=== PATIENT | male | born 1950 | race Caucasian/White ===

== ENCOUNTER 2017-06-08 07:34 | Day surgery (SDC) | payer MEDICARE, OTHER ==
--- NOTE | 2017-06-08 06:28 | PCM.HP ---
H&P History of Present Illness - General Date of Service: 06/08/17 Admit Problem/Dx: Screening colonoscopy Source of Information: Patient - History of Present Illness Initial Comments - Free Text/Narative: The patient is a 67-year-old male here for screening colonoscopy. His PCP is Otilia Barrios NP The patient presents today for the above noted concern. Did complete prep and did have clear bowel movements this am. The patient denies any constipation/ diarrhea/ hematochezia/ melena/blood on tissue paper/hemorrhoids. Has 1 soft, brown, formed, BMs daily. Bowel movements are described as regular and easy to pass. No unintentional weight loss. No change in stool caliber. No abdominal pain. Denies history of ulcerative colitis or Crohn's disease. Denies any family history of inflammatory bowel disease or GI cancers. Last colonoscopy was 10 years ago in [place] at unsure location. Reportedly normal. No , nausea, vomiting. 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 He will occasionally choke on foods when over eats. Will have foods stick in his esophagus, won't go down, won't come up only when eating too, fast. No heimlich maneuver. The dysphagia occurs once monthly. Meats will stick. Will have reflux/heartburn when overeating only. He is interested in EGD. No right upper abdominal pain. No les/light colored stools. No greasy stools. NO pain/diarrhea with fatty meals. Has a loop recorder in left chest, February 2017. Has had palpitations and tachycardia. Hx of SVT, frequent PVCS, Ventricular tachycardia (reports he was told he had this at one point), ascending aortic aneurysm, aortic aneurysm. Last available echo 2013 measured aneurysm at 45mm. He reports he has yearly echocardiograms to monitor. He was going to have an ablation, was having abnormalities on both sides of his heart. Cardiac problems started with autoimmune disease. [facility]. Perdue follows dermatomyositis, has not had an infusion for one year. - Related Data Allergies/Adverse Reactions: Allergies Allergy/AdvReac Type Severity Reaction Status Date / Time rosuvastatin Allergy dermatomysi Verified 06/07/17 14:46 tis amiodarone AdvReac dermatomysi Verified 06/07/17 14:46 tis Home Medications: Home Meds Carvedilol 12.5 mg PO BID 11/06/14 [History] Famotidine [Pepcid] 20 mg PO BEDTIME 11/06/14 [History] Folic Acid 1 mg PO DAILY 11/06/14 [History] Hydroxychloroquine [Plaquenil] 200 mg PO BID 11/06/14 [History] amLODIPine Besylate [Amlodipine Besylate] 5 mg PO DAILY 11/06/14 [History] traZODone 50 mg PO BEDTIME 11/06/14 [History] Aspirin [Halfprin] 162 mg PO DAILY 05/20/15 [History] Mycophenolate Mofetil [Cellcept] 500 mg PO DAILY 05/20/15 [History] Vitamin A Palmitate [Vitamin A] 1 cap PO DAILY 05/20/15 [History] diphenhydrAMINE [Benadryl] 50 mg PO ASDIRECTED 05/20/15 [History] Sennosides/Docusate Sodium [Senna-S] 2 tab PO BID #60 tablet 05/21/15 [Rx] Losartan [Cozaar] 25 mg PO DAILY 04/14/16 [History] Flecainide Acetate [Flecainide Acetate] 100 mg PO DAILY 06/07/17 [History] Gabapentin [Neurontin] 400 mg PO DAILY 06/07/17 [History] Spironolactone [Aldactone] 25 mg PO DAILY 06/07/17 [History] Past Medical History HEENT History: Reports: Impaired Vision Other HEENT History: WEARS GLASSES, HX OF RETINITIS PIGMENTOSA Cardiovascular History: Reports: Aneurysm, Arrhythmia, Cardiomyopathy (possible) , Heart Murmur, Hypertension, Other (See Below) Other Cardiovascular History: LEAKING MITRAL VALVE, enlarged aorta, ventricular tachycardia, loop recorder Respiratory History: Reports: SOB Other Respiratory History: PT REPORTS SOB RELATED TO DERMATOMYOSITITS Gastrointestinal History: Reports: None Other Gastrointestinal History: CURRENT RIGHT INGUINAL HERNIA Genitourinary History: Reports: None Other Genitourinary History: erectile dysfunction 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 Musculoskeletal History: Reports: Other (See Below) Other Musculoskeletal History: 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 Other Neuro History: HX OF MUSCLE WEAKNESS RELATED TO DERMATOMYOSITIS Psychiatric History: Reports: None Endocrine/Metabolic History: Reports: None Hematologic History: Reports: None Other Immunologic History: DERMATOMYOSITIS Oncologic (Cancer) History: Reports: None Other Dermatologic History: dermatamytosis, shingles - Infectious Disease History Infectious Disease History: Reports: Shingles - Past Surgical History Head Surgeries/Procedures: Reports: None HEENT Surgical History: Reports: Cataract Surgery Other HEENT Surgeries/Procedures: HX OF BILATERAL CATARACT SURGERY AND BLEPHAROPLASTY PROCEDURE GI Surgical History: Reports: Appendectomy, Colonoscopy, Hernia, Inguinal, Hernia Repair/Other Other GI Surgeries/Procedures: LEFT INGUINAL HERNIA REPAIR OCTOBER 2014 Endocrine Surgical History: Reports: None Other Musculoskeletal Surgeries/Procedures:: HX OF RIGHT WRIST FUSION, ulna surgery Social & Family History - Family History Cardiac: Reports: Hypertension, [place] (Grandfather, Father (45), and brother (45)) GI: Reports: None Endocrine/Metabolic: Reports: Diabetes, type II Other Family History: retinosis pigmentosa-sister Positive family hx of DM, Heart disease, kidney disease, thyroid disorder, RA, Obesity - Tobacco Use Smoking Status *Q: Never Smoker Second Hand Smoke Exposure: No - Caffeine Use Caffeine Use: Reports: None - Alcohol Use Days Per Week of Alcohol Use: 0 Number of Drinks Per Day: 0 Total Drinks Per Week: 0 - Recreational Drug Use Recreational Drug Use: No Drug Use in Last 12 Months: No H&P Review of Systems - Review of Systems: Review Of Systems: See Below Free Text/Narrative: Denies any exertional chest pain or shortness of breath. No personal or familial history of clotting or bleeding disorders. No history of anesthetic complications. No history of familial anesthetic complications. Denies presence/history of chest pain. Hx of palpitations. Hx of lower extremity edema. NO: dyspnea, orthopnea, claudication, wheezing, obstructive sleep apnea, chronic cough, upper respiratory symptoms in the last two weeks. No history of blood thinner use. History of anemia 2013. NO hx of joint replacement and heart valves. No history of seizure or stroke. Hx of prior cardiology evaluation. NO: pulmonology evaluation. All other systems reviewed and were negative except as per history of present illness. General: Reports: No Symptoms. Denies: Fever, Chills, Night Sweats, Diaphoresis , Weight Loss HEENT: Reports: Glasses, Visual Changes (gradually worse) Pulmonary: Reports: No Symptoms. Denies: Shortness of Breath, Wheezing, Cough Cardiovascular: Reports: Palpitations (now a seldom occurrence, was once a day, no longer feels them ). Denies: Chest Pain Gastrointestinal: Reports: No Symptoms. Denies: Abdominal Pain, Black Stool, Bloody Stool, Constipation, Diarrhea, Decreased Appetite, Melena, Nausea, Vomiting Genitourinary: Reports: No Symptoms. Denies: Dysuria Musculoskeletal: Reports: Joint Swelling Skin: Reports: No Symptoms Psychiatric: Reports: No Symptoms Neurological: Reports: No Symptoms, Dizziness (in am ). Denies: Difficulty Walking Hematologic/Lymphatic: Reports: Easy Bruising. Denies: Easy Bleeding Immunologic: Reports: Other (dermatomyositis) Exam - Exam Exam: See Below - Vital Signs Weight: 90.718 kg - Exam General: Alert, Oriented, Cooperative HEENT: Conjunctiva Clear, Hearing Intact. No: Scleral Icterus Lungs: Clear to Auscultation, Normal Respiratory Effort Cardiovascular: Regular Rate, Regular Rhythm, Normal S1, Normal S2, Other ( heart tones slightly distant). No: Irregular Rhythm, Systolic Murmur, Diastolic Murmur Abdomen: Normal Bowel Sounds, Soft. No: Distention, Guarding, Tenderness Back Exam: Normal Inspection Extremities: Normal Inspection. No: Clubbing, Edema, Increased Warmth Skin: Warm, Dry, Intact Neuro Extensive - Mental Status: Alert, Oriented x3, Normal Mood/Affect, Normal Cognition, Memory Intact Neuro Extensive - Motor, Sensory, Reflexes: No: Receptive Aphasia, Expressive Aphasia, Facial Palsy (R), Facial Palsy w Forehead Psychiatric: Alert, Normal Affect, Normal Mood *Q Meaningful Use (ADM) - VTE *Q VTE Criteria *Q: - Stroke *Q Stroke Criteria *Q: - AMI *Q AMI Criteria *Q: - Problem List (1) Screening for colon cancer SNOMED Code(s): 470605796, 807048878 ICD Code: Z12.11 - ENCOUNTER FOR SCREENING FOR MALIGNANT NEOPLASM OF COLON Status: Acute Current Visit: Yes (2) Dysphagia SNOMED Code(s): 21651984, 954073637 ICD Code: R13.10 - DYSPHAGIA, UNSPECIFIED Status: Acute Current Visit: Yes Qualifiers: Dysphagia type: unspecified Qualified Code(s): R13.10 - Dysphagia, unspecified Problem List Initiated/Reviewed/Updated: Yes Orders Last 24hrs: Active Orders 24 hr Category Date Time Status Peripheral IV Care [RC] . DIRECTED Care 06/08/17 07:00 Active Verify Patient Consent Obtain [RC] ASDIRECTED Care 06/08/17 07:00 Active BMP [BASIC METABOLIC PANEL,BMP] [CHEM] Routine Lab 06/08/17 08:00 Ordered Lactated Ringers [Ringers, Lactated] 1,000 ml Med 06/08/17 07:00 Active IV ASDIRECTED Lidocaine 1%/Sod Bicarbonate [Buffered Lidocaine 1% in Med 06/08/17 07:00 Active NS 8.4%] 0.25 ml .XX ONETIME PRN Sodium Chloride 0.9% [Saline Flush] Med 06/08/17 07:00 Active 10 ml FLUSH ASDIRECTED PRN Medication Administration Instruction [OM.PC] Routine Oth 06/08/17 07:00 Ordered Peripheral IV Insertion Adult [OM.PC] Routine Oth 06/08/17 07:00 Ordered Medication Orders Lactated Ringer's (Ringers, Lactated) 1,000 mls @ 125 mls/hr IV ASDIRECTED MARCIA Stop: 06/08/17 23:00 Lidocaine/Sodium Bicarbonate (Buffered Lidocaine 1% In Ns 8.4%) 0.25 ml .XX ONETIME PRN PRN Reason: Prior to IV Start Stop: 06/08/17 18:00 Sodium Chloride (Saline Flush) 10 ml FLUSH ASDIRECTED PRN PRN Reason: Keep Vein Open Stop: 06/08/17 18:00 Assessment/Plan Comment:: 67 year old male with need for screening colonoscopy, dysphagia, need for diagnostic EGD Patient can perform 4 METS of physical activity without chest pain or shortness of breath. PLAN: We discussed performing a screening colonoscopy and diagnostic EGD. We discussed the risks and benefits of colonoscopy including pain, bleeding, need for additional procedures, damage to surrounding structures including colonic/ esophageal/small bowel perforation risk of less than 1%, and risks of anesthesia. Informed consent was obtained. We discussed completion of the colonoscopy prep. Verbal and written instructions regarding the prep were reviewed. This procedure will be done at [facility] due to cardiac history I personally reviewed the patient's previous medical records and laboratory studies. Patient verbalized understanding and agreed with care plan. This patient was evaluated by Dr. Julieta Licea, plan formulated by DEJUAN Lowry scribing for Dr. Julieta Licea General Surgery Department [facility]
[~2017-06-08 07:34] MED LIST: Lactated Ringers 1,000 ML IV SCH; Lidocaine 1%/Sod Bicarbonate in NS 8.4% 1 ML Syringe PRN; Sodium Chloride 0.9% 10 ML Syringe FLUSH PRN
[2017-06-08] MEDS ORDERED: Lidocaine 1% 4 ML ONE (07:39)
[2017-06-08] MEDS ORDERED: fentaNYL 100 MCG/2 ML SDV ONE (07:39)
[2017-06-08] MEDS ORDERED: Propofol 200 MG/20 ML SDV ONE (07:39)
--- NOTE | 2017-06-08 08:31 | PCM.PREANE ---
Preanesthetic Assessment - Anesthesia/Transfusion/Family Hx Anesthesia History: Prior Anesthesia Without Reaction Family History of Anesthesia Reaction: No Transfusion History: No Prior Transfusion(s) Intubation History: Unknown - Review of Systems General: No Symptoms Pulmonary: No Symptoms Cardiovascular: No Symptoms (history of htn, leaky mitral valve, enlarged aorta , history of SVT and loop recorder placed February 2017), Palpitations, Lightheadedness (with medication adjustments and when dehydration) Gastrointestinal: Difficulty swallowing Neurological: Tingling (left shoulder bilateral hands) Other: Reports: None (history of dermatomytosis with muscle weakness noted, with muscle weakness much improved.), Easy Bruising, Depression, Anxiety - Physical Assessment NPO Status Date: 06/07/17 NPO Status Time: 22:30 Pulse: 68 O2 Sat by Pulse Oximetry: 95 Respiratory Rate: 20 Blood Pressure: 126/74 Temperature: 36.4 C Height: 1.78 m Weight: 90.718 kg ASA Class: 3 Mental Status: Alert & Oriented x3 Airway Class: Mallampati = 2 Dentition: Reports: Normal Dentition, Caries Thyro-Mental Finger Breadths: 3 Mouth Opening Finger Breadths: 3 ROM/Head Extension: Full Lungs: Clear to auscultation, Normal respiratory effort Cardiovascular: Regular Rate, Regular Rhythm, Irregular Rhythm - Lab Values: Labs reviewed and noted and within acceptable ranges to proceed with scheduled procedure. - Imaging/EKG Impressions: EKG: SR rate= 60, no acute stemi CXR: mild cardiomegaly - Allergies Allergies/Adverse Reactions: Allergies Allergy/AdvReac Type Severity Reaction Status Date / Time rosuvastatin Allergy dermatomysi Verified 06/08/17 08:46 tis amiodarone AdvReac dermatomysi Verified 06/08/17 08:46 tis - Anesthesia Plan Pre-Op Medication Ordered: Beta Elliot Beta Elliot: Carvedilol Med Last Dose Date: 06/08/17 Med Last Dose Time: 06:00 - Acknowledgements Anesthesia Type Planned: MAC Pt an Appropriate Candidate for the Planned Anesthesia: Yes Alternatives and Risks of Anesthesia Discussed w Pt/Guardian: Yes Pt/Guardian Understands and Agrees with Anesthesia Plan: Yes PreAnesthesia Questionnaire HEENT History: Reports: Impaired Vision Other HEENT History: WEARS GLASSES, HX OF RETINITIS PIGMENTOSA Cardiovascular History: Reports: Hypertension, Other (See Below) Other Cardiovascular History: LEAKING MITRAL VALVE, enlarged aorta, ventricular tachycardia, loop recorder Respiratory History: Reports: SOB Other Respiratory History: PT REPORTS SOB RELATED TO DERMATOMYOSITITS Other Gastrointestinal History: CURRENT RIGHT INGUINAL HERNIA Other Genitourinary History: erectile dysfunction 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 Musculoskeletal History: Reports: Other (See Below) Other Musculoskeletal History: 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 Other Neuro History: HX OF MUSCLE WEAKNESS RELATED TO DERMATOMYOSITIS Psychiatric History: Reports: None Endocrine/Metabolic History: Reports: None Hematologic History: Reports: None Other Immunologic History: DERMATOMYOSITIS Oncologic (Cancer) History: Reports: None Other Dermatologic History: dermatamytosis, shingles - Infectious Disease History Infectious Disease History: Reports: Shingles - Past Surgical History Head Surgeries/Procedures: Reports: None HEENT Surgical History: Reports: Cataract Surgery Other HEENT Surgeries/Procedures: HX OF BILATERAL CATARACT SURGERY AND BLEPHAROPLASTY PROCEDURE GI Surgical History: Reports: Appendectomy, Colonoscopy, Hernia, Inguinal, Hernia Repair/Other Other GI Surgeries/Procedures: LEFT INGUINAL HERNIA REPAIR OCTOBER 2014 Endocrine Surgical History: Reports: None Other Musculoskeletal Surgeries/Procedures:: HX OF RIGHT WRIST FUSION, ulna surgery - SUBSTANCE USE Smoking Status *Q: Never Smoker Second Hand Smoke Exposure: No Days Per Week of Alcohol Use: 0 Number of Drinks Per Day: 0 Total Drinks Per Week: 0 Recreational Drug Use History: No - HOME MEDS Home Medications: Home Meds Carvedilol 12.5 mg PO BID 11/06/14 [History] Famotidine [Pepcid] 20 mg PO BEDTIME 11/06/14 [History] Folic Acid 1 mg PO DAILY 11/06/14 [History] Hydroxychloroquine [Plaquenil] 200 mg PO BID 11/06/14 [History] amLODIPine Besylate [Amlodipine Besylate] 5 mg PO DAILY 11/06/14 [History] traZODone 50 mg PO BEDTIME 11/06/14 [History] Aspirin [Halfprin] 162 mg PO DAILY 05/20/15 [History] Mycophenolate Mofetil [Cellcept] 500 mg PO DAILY 05/20/15 [History] Vitamin A Palmitate [Vitamin A] 1 cap PO DAILY 05/20/15 [History] diphenhydrAMINE [Benadryl] 50 mg PO ASDIRECTED 05/20/15 [History] Sennosides/Docusate Sodium [Senna-S] 2 tab PO BID #60 tablet 05/21/15 [Rx] Losartan [Cozaar] 25 mg PO DAILY 04/14/16 [History] Flecainide Acetate [Flecainide Acetate] 100 mg PO DAILY 06/07/17 [History] Gabapentin [Neurontin] 400 mg PO DAILY 06/07/17 [History] Spironolactone [Aldactone] 25 mg PO DAILY 06/07/17 [History] - CURRENT (IN HOUSE) MEDS Current Meds: Current Medications Lactated Ringer's (Ringers, Lactated) 1,000 mls @ 125 mls/hr IV ASDIRECTED MARCIA Stop: 06/08/17 23:00 Lidocaine/Sodium Bicarbonate (Buffered Lidocaine 1% In Ns 8.4%) 0.25 ml .XX ONETIME PRN PRN Reason: Prior to IV Start Stop: 06/08/17 18:00 Sodium Chloride (Saline Flush) 10 ml FLUSH ASDIRECTED PRN PRN Reason: Keep Vein Open Stop: 06/08/17 18:00 Discontinued Medications Fentanyl (Sublimaze) Confirm Administered Dose 100 mcg .ROUTE .STK-MED ONE Stop: 06/08/17 07:40 Lidocaine HCl (Xylocaine-Mpf 1%) Confirm Administered Dose 4 mls @ as directed .ROUTE .STK-MED ONE Stop: 06/08/17 07:40 Propofol (Diprivan 20 Ml) Confirm Administered Dose 200 mg .ROUTE .STK-MED ONE Stop: 06/08/17 07:40
--- NOTE | 2017-06-08 09:50 | PCM48HPAN ---
Post Anesthesia Note - EVALUATION WITHIN 48HRS OF ANESTHETIC Vital Signs in Normal Range: Yes Patient Participated in Evaluation: Yes Respiratory Function Stable: Yes Airway Patent: Yes Cardiovascular Function Stable: Yes Hydration Status Stable: Yes Pain Control Satisfactory: Yes Nausea and Vomiting Control Satisfactory: Yes Mental Status Recovered: Yes
--- NOTE | 2017-06-08 09:51 | PCM.OPNOTE ---
- General Post-Op/Procedure Note Date of Surgery/Procedure: 06/08/17 Operative Procedure(s): Dx EGD CFB. Screening colonoscopy Pre Op Diagnosis: Dysphagia, Need for screening colonoscopy Post-Op Diagnosis: Gastritis, Gastric ulcers, Duodenitis, Small hiatal hernia, Diverticulosis, Unusual (benign) appearance of cecum Anesthesia Technique: MAC Primary Surgeon: Julieta Licea Anesthesia Provider: Blanquita Poole Pathology: 1. Small bowel biopsy 2. Antral biopsy 3. Distal esophageal biopsy Fluid Replacement, Intraop: 400 (mL crystalloid ) EBL in mLs: 1 Complications: None Condition: Good Free Text/Narrative:: INDICATION FOR PROCEDURE: The patient is a 67-year-old man who was self- referred to me. He is a patient of CRISTOBAL Kramer. He has dysphagia and is in need of a screening colonoscopy. He has a history of dermatomyositis followed by Dr. Perdue. Performing a colonoscopy and EGD and the associated risks of the procedures had been discussed with the patient. The patient found these risks acceptable and agreed to proceed. DESCRIPTION OF PROCEDURE: The patient was taken to the operating room and placed in the left lateral decubitus position. After induction of adequate sedation, a bite block was placed. A standard Olympus gastroscope was inserted into the oropharynx and guided down the esophagus without difficulty. The gastroesophageal junction was appreciated at 40 cm from the teeth. There was no evidence of stricture or esophageal ulcerations. The scope was advanced into the stomach, and there was gastritis with multiple small cratered ulcers around the antrum. The scope was passed into the proximal jejunum and the duodenum which showed mild duodenitis of D1 and D2. There were no ulcerations. The proximal jejunum was grossly normal in appearance. Multiple cold forceps biopsies were obtained of the proximal jejunum and duodenum. The scope was withdrawn into the antrum, and additional cold forceps biopsies were obtained. The remainder of the gastric body was examined, and there were no additional abnormalities. The scope was retroflexed, and there was a diminutive hiatal hernia. The scope was straightened and withdrawn to the GE junction. Additional cold forceps biopsies were obtained of the distal esophagus. The scope was withdrawn through the remainder of the esophagus and no further abnormalities were noted. The posterior oropharynx was grossly normal in appearance. The scope was fully withdrawn and attention was then turned to the colonoscopy. A digital rectal exam was performed which was unremarkable. There were no prostatic nodules. A pediatric Olympus colonoscope was inserted into the rectum and guided under direct visualization to the appendiceal orifice and ileocecal valve. The scope was then slowly withdrawn through the colon. The quality of the prep was excellent. There was no evidence of angiodysplasias or mass lesions. The scope was withdrawn into the rectum and retroflexed. There was no significant prominence of the patient's internal hemorrhoids. The scope was straightened, the colon was desufflated, and the scope was withdrawn. The patient was awakened from sedation and transferred to the recovery room in stable condition having tolerated the procedure well. POSTOPERATIVE PLAN: I discussed with the patient's my intraoperative findings and recommendations. The patient will follow up in approximately 14 days to discuss pathology and how their symptoms are progressing. The patient is to start Protonix 40mg daily and may stop the Pepcid nightly. He also needs to stop the aspirin for ideally 6 weeks. I have asked him to discuss with Dr. Perdue adjustment of his Cellcept as Protonix can alter absorption. He does need to be on the Protonix as Pepcid was not effective for him. If his symptoms do not improve on Protonix consideration of esophageal motility testing. I have asked the patient to follow a GERD\gastritis diet. Repeat colonoscopy is recommended in 10 years. The patient is to call with any worsening of symptoms or questions prior to the appointment.
[2017-06-08 11:17] VITALS: BP 125/62
== END 2017-06-08 11:38 | disposition home or self-care (01) ==
LOC: JD.SDS 07:34
PROVIDERS: ATTEND Surgery
PROC: 0DBA8ZX Excision of Jejunum, Via Natural or Artificial Opening Endoscopic, Diagnostic (ICD-10-PCS; principal; 2017-06-08)
PROC: 0DB88ZX Excision of Small Intestine, Via Natural or Artificial Opening Endoscopic, Diagnostic (ICD-10-PCS; 2017-06-08)
PROC: 0DJD8ZZ Inspection of Lower Intestinal Tract, Via Natural or Artificial Opening Endoscopic (ICD-10-PCS; 2017-06-08)
DX: Z12.11 Encounter for screening for malignant neoplasm of colon (principal); R13.10 Dysphagia, unspecified; K25.9 Gastric ulcer, unspecified as acute or chronic, without hemorrhage or perforation; I71.9 Aortic aneurysm of unspecified site, without rupture; I34.8 Other nonrheumatic mitral valve disorders; K40.90 Unilateral inguinal hernia, without obstruction or gangrene, not specified as recurrent
CPT/HCPCS: 36415; 43239; 45378; 80048; 88305; J3010; J7120; J2704

== ENCOUNTER 2018-03-01 06:47 | Day surgery (SDC) | payer MEDICARE, OTHER ==
[2018-03-01] MEDS ORDERED: Propofol 200 MG/20 ML SDV ONE (07:01)
[2018-03-01] MEDS ORDERED: fentaNYL 100 MCG/2 ML SDV ONE (07:02)
[2018-03-01] MEDS ORDERED: Lidocaine 1% 4 ML ONE (07:04)
--- NOTE | 2018-03-01 07:21 | PCM.PREANE ---
Preanesthetic Assessment - Procedure Proposed Procedure: Diagnostic EGD - Anesthesia/Transfusion/Family Hx Anesthesia History: Prior Anesthesia Without Reaction Family History of Anesthesia Reaction: No Transfusion History: No Prior Transfusion(s) Intubation History: Unknown - Review of Systems General: No Symptoms Pulmonary: No Symptoms Cardiovascular: Other (Dilated cardiomyopathy, aortic regurg, PSVT, left artrial dilation, ascending aortic aneurysm, htn) Gastrointestinal: Other (GERD) Neurological: No Symptoms Other: Reports: None - Physical Assessment NPO Status Date: 02/28/18 NPO Status Time: 21:00 Pulse: 90 O2 Sat by Pulse Oximetry: 96 Respiratory Rate: 16 Blood Pressure: 140/78 Temperature: 36.6 C Height: 1.75 m Weight: 95 kg ASA Class: 2 Mental Status: Alert & Oriented x3 Airway Class: Mallampati = 1 Dentition: Reports: Normal Dentition Thyro-Mental Finger Breadths: 3 ROM/Head Extension: Full Lungs: Clear to Auscultation, Normal Respiratory Effort Cardiovascular: Regular Rate, Regular Rhythm - Allergies Allergies/Adverse Reactions: Allergies Allergy/AdvReac Type Severity Reaction Status Date / Time propafenone Allergy Cannot Verified 03/01/18 07:32 Remember amiodarone AdvReac dermatomysi Verified 02/28/18 15:33 tis rosuvastatin AdvReac dermatomysi Verified 03/01/18 07:30 tis - Blood Blood Available: No Product(s) Available: None - Anesthesia Plan Pre-Op Medication Ordered: None - Acknowledgements Anesthesia Type Planned: MAC Pt an Appropriate Candidate for the Planned Anesthesia: Yes Alternatives and Risks of Anesthesia Discussed w Pt/Guardian: Yes Pt/Guardian Understands and Agrees with Anesthesia Plan: Yes PreAnesthesia Questionnaire HEENT History: Reports: Impaired Vision Other HEENT History: WEARS GLASSES, HX OF RETINITIS PIGMENTOSA Cardiovascular History: Reports: Hypertension, Other (See Below) Other Cardiovascular History: LEAKING MITRAL VALVE, enlarged aorta, ventricular tachycardia, loop recorder Respiratory History: Reports: SOB Other Respiratory History: PT REPORTS SOB RELATED TO DERMATOMYOSITITS Gastrointestinal History: Reports: None Other Gastrointestinal History: CURRENT RIGHT INGUINAL HERNIA Genitourinary History: Reports: None Other Genitourinary History: erectile dysfunction [employer]IST History: Reports: None Musculoskeletal History: Reports: Other (See Below) Other Musculoskeletal History: 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 Other Neuro History: HX OF MUSCLE WEAKNESS RELATED TO DERMATOMYOSITIS Psychiatric History: Reports: None Endocrine/Metabolic History: Reports: None Hematologic History: Reports: None Other Immunologic History: DERMATOMYOSITIS Oncologic (Cancer) History: Reports: None Other Dermatologic History: dermatamytosis, shingles - Infectious Disease History Infectious Disease History: Reports: Shingles - Past Surgical History Head Surgeries/Procedures: Reports: None HEENT Surgical History: Reports: Cataract Surgery Other HEENT Surgeries/Procedures: HX OF BILATERAL CATARACT SURGERY AND BLEPHAROPLASTY PROCEDURE GI Surgical History: Reports: Appendectomy, Colonoscopy, Hernia, Inguinal, Hernia Repair/Other Other GI Surgeries/Procedures: LEFT INGUINAL HERNIA REPAIR OCTOBER 2014 Endocrine Surgical History: Reports: None Other Musculoskeletal Surgeries/Procedures:: HX OF RIGHT WRIST FUSION, ulna surgery - SUBSTANCE USE Smoking Status *Q: Never Smoker Second Hand Smoke Exposure: No Days Per Week of Alcohol Use: 0 Number of Drinks Per Day: 0 Total Drinks Per Week: 0 Recreational Drug Use History: No - HOME MEDS Home Medications: Home Meds Carvedilol 12.5 mg PO BID 11/06/14 [History] Folic Acid 1 mg PO DAILY 11/06/14 [History] Hydroxychloroquine [Plaquenil] 200 mg PO BID 11/06/14 [History] traZODone 50 mg PO BEDTIME 11/06/14 [History] Mycophenolate Mofetil [Cellcept] 1,000 mg PO BID 05/20/15 [History] diphenhydrAMINE [Benadryl] 50 mg PO BID 05/20/15 [History] Losartan [Cozaar] 25 mg PO DAILY 04/14/16 [History] Flecainide Acetate 100 mg PO BID 06/07/17 [History] Spironolactone [Aldactone] 25 mg PO DAILY 06/07/17 [History] Aspirin [Adult Low Dose Aspirin EC] 81 mg PO DAILY 02/28/18 [History] Cholecalciferol (Vitamin D3) [Vitamin D3] 2,000 unit PO DAILY 02/28/18 [History] Famotidine 20 mg PO DAILY 02/28/18 [History] Gabapentin [Neurontin] 300 mg PO BEDTIME 02/28/18 [History] Mometasone Furoate [Elocon 0.1% Crm] 1 dose TOP BID 02/28/18 [History] Naproxen Sodium 1 tab PO TID PRN 02/28/18 [History] Vitamin A 25,000 unit PO DAILY 03/01/18 [History] - CURRENT (IN HOUSE) MEDS Current Meds: Current Medications Discontinued Medications Fentanyl (Sublimaze) Confirm Administered Dose 100 mcg .ROUTE .STK-MED ONE Stop: 03/01/18 07:03 Lidocaine HCl (Xylocaine-Mpf 1%) Confirm Administered Dose 4 mls @ as directed .ROUTE .STK-MED ONE Stop: 03/01/18 07:05 Propofol (Diprivan 20 Ml) Confirm Administered Dose 200 mg .ROUTE .STK-MED ONE Stop: 03/01/18 07:02
[2018-03-01] MEDS ORDERED: Sodium Chloride 0.9% 10 ML Syringe FLUSH PRN (07:24)
[2018-03-01] MEDS ORDERED: Lidocaine 1%/Sod Bicarbonate in NS 8.4% 1 ML Syringe IDERM PRN (07:24)
[2018-03-01] MEDS ORDERED: Lactated Ringers 1,000 ML IV SCH (07:30)
--- NOTE | 2018-03-01 07:58 | PCM.OPNOTE ---
- General Post-Op/Procedure Note Date of Surgery/Procedure: 03/01/18 Operative Procedure(s): Esophagogastroduodenoscopy with antral biopsy Findings: Mild spotty antral inflammation Pre Op Diagnosis: History of antritis and GERD Post-Op Diagnosis: Mild antritis Anesthesia Technique: MAC, Moderate Sedation Primary Surgeon: Kwesi Neumann Pathology: Antral biopsy 1 EBL in mLs: 0 Complications: None Condition: Good Free Text/Narrative:: After adequate IV sedation and analgesia was obtained with monitoring the patient was placed on his left side. Through a bite-block lubricated upper endoscope was inserted into the esophagus and then advanced under direct vision to the stomach where additional air was given. There were spotty areas of erythema within the distal antrum. There were no rosas ulcers or erosions. The scope was then introduced into the duodenum to its second part distally. The second and first parts were endoscopically normal with no mass lesions or inflammatory changes seen. The scope was then withdrawn to the antrum once again where a biopsy was taken for histologic evaluation. In the retroflexed view the cardiac and fundic regions were unremarkable and there was no hiatal hernia. The rugal folds were normal. The gastric motility was grossly normal as well. The scope was then withdrawn to the GE junction which was unremarkable. The body of this esophagus was grossly normal. Director Of Enrollment photographs were taken for the patient and for the medical record. Air was removed as I finished the procedure which he tolerated well.
--- NOTE | 2018-03-01 08:01 | PCM48HPAN ---
Post Anesthesia Note - EVALUATION WITHIN 48HRS OF ANESTHETIC Vital Signs in Normal Range: Yes Patient Participated in Evaluation: Yes Respiratory Function Stable: Yes Airway Patent: Yes Cardiovascular Function Stable: Yes Hydration Status Stable: Yes Pain Control Satisfactory: Yes Nausea and Vomiting Control Satisfactory: Yes Mental Status Recovered: Yes Pulse Rate: 60 SaO2: 91 Resp Rate: 14 Temperature: 36.7 C Blood Pressure: 103/57
[2018-03-01 08:33] VITALS: BP 110/73
== END 2018-03-01 08:22 | disposition home or self-care (01) ==
LOC: JD.SDS 06:47
PROVIDERS: ATTEND Surgery
DX: K31.89 Other diseases of stomach and duodenum (principal); K21.9 Gastro-esophageal reflux disease without esophagitis; I10 Essential (primary) hypertension; Z79.899 Other long term (current) drug therapy; Z88.8 Allergy status to other drugs, medicaments and biological substances
CPT/HCPCS: 43239; J3010; J7120; 00731; 88305; 88342; J2001; J2704

== ENCOUNTER 2020-01-05 17:33 | Observation (INO) | payer MEDICARE, OTHER ==
[2020-01-05] MEDS ORDERED: Sodium Chloride 0.9% 10 ML Syringe FLUSH PRN (17:49)
[2020-01-05] MEDS ORDERED: Ondansetron 4 MG/2 ML SDV IVPUSH ONE (17:49)
[2020-01-05] MEDS ORDERED: Lactated Ringers 1,000 ML IV SCH (18:00)
--- NOTE | 2020-01-05 18:40 | CR ---
Chest: Portable view of the chest was obtained. Comparison: Prior chest x-ray of 10/18/16. Heart is enlarged. Tortuous thoracic aorta is seen. Atelectasis is noted within the left base. Lungs otherwise are clear. Bony structures are grossly intact. Prior resection of distal right clavicle is noted. Impression: 1. Atelectasis within left lung base. 2. Other findings as noted above. Nothing acute is otherwise seen. Diagnostic code #2 Study was dictated in [place] Standard Time
--- NOTE | 2020-01-05 19:09 | EDM.PDOC ---
<Herbert Francois Mary Lou - Last Filed: 01/05/20 19:41> ED HPI GENERAL MEDICAL PROBLEM - General Chief Complaint: Cardiovascular Problem Stated Complaint: [facility] Time Seen by Provider: 01/05/20 17:37 Source of Information: Reports: Patient, RN Notes Reviewed - History of Present Illness INITIAL COMMENTS - FREE TEXT/NARRATIVE: 69-year-old male has been brought in by [facility] ambulance with nausea, near syncope, difficulty breathing. Patient states that he was aware of decreased appetite at lunchtime today about 6 hours ago and just has not felt "totally normal on day today". Then a short time ago onset of severe nausea, severe dizziness "couldn't breathe". He did call 911. [facility] ambulance did respond , did call for Early ambulance intercept, was given oxygen, transported here without further incident. EMS arrival he was noted to be pale, diaphoretic which gradually did resolve while in route to the ED. He does have history of hypertension, history of coronary artery disease and also does have history of rhythm abnormalities". He has not been coughing today but also family notes that he did not get a flu shot this year. 19:35. Just found out a short time ago that he actually awakened with diarrhea this past morning about 12 episodes today. Told the triage nurse that there may have been some dark stools mixed in with this but nothing severely black or tarry. No rosas blood. He is on eliquis blood thinner medication and 3 hypertensive meds in addition to his other medications. He is not diabetic. 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 below) Other Treatments NICKING MACHINE OPERATOR: iv start per ambulance - Related Data Allergies Allergy/AdvReac Type Severity Reaction Status Date / Time propafenone Allergy Cannot Verified 03/01/18 07:32 Remember amiodarone AdvReac dermatomysi Verified 02/28/18 15:33 tis rosuvastatin AdvReac dermatomysi Verified 03/01/18 07:30 tis Home Meds: Home Meds Hydroxychloroquine [Plaquenil] 200 mg PO BID 11/06/14 [History] carvediloL [Carvedilol] 12.5 mg PO BID 11/06/14 [History] mycophenolate mofetiL [Cellcept] 1,000 mg PO BID 05/20/15 [History] Losartan [Cozaar] 25 mg PO DAILY 04/14/16 [History] Flecainide Acetate 100 mg PO BID 06/07/17 [History] Spironolactone [Aldactone] 25 mg PO DAILY 06/07/17 [History] Cholecalciferol (Vitamin D3) [Vitamin D3] 2,000 unit PO DAILY 02/28/18 [History] Famotidine 20 mg PO DAILY PRN 02/28/18 [History] Naproxen Sodium 220 mg PO TID PRN 02/28/18 [History] Vitamin A 25,000 unit PO DAILY 03/01/18 [History] Apixaban [Eliquis] 5 mg PO BID 01/05/20 [History] Past Medical History HEENT History: Reports: Impaired Vision Other HEENT History: WEARS GLASSES, HX OF RETINITIS PIGMENTOSA Cardiovascular History: Reports: Hypertension, Other (See Below) Other Cardiovascular History: LEAKING MITRAL VALVE, enlarged aorta, ventricular tachycardia, loop recorder Respiratory History: Reports: SOB Other Respiratory History: PT REPORTS SOB RELATED TO DERMATOMYOSITITS Gastrointestinal History: Reports: None Other Gastrointestinal History: CURRENT RIGHT INGUINAL HERNIA Genitourinary History: Reports: None Other Genitourinary History: erectile dysfunction 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: Reports: None Musculoskeletal History: Reports: Other (See Below) Other Musculoskeletal History: 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 Other Neuro History: HX OF MUSCLE WEAKNESS RELATED TO DERMATOMYOSITIS Psychiatric History: Reports: None Endocrine/Metabolic History: Reports: None Hematologic History: Reports: None Other Immunologic History: DERMATOMYOSITIS Oncologic (Cancer) History: Reports: None Other Dermatologic History: dermatamytosis, shingles - Infectious Disease History Infectious Disease History: Reports: Shingles - Past Surgical History Head Surgeries/Procedures: Reports: None HEENT Surgical History: Reports: Cataract Surgery Other HEENT Surgeries/Procedures: HX OF BILATERAL CATARACT SURGERY AND BLEPHAROPLASTY PROCEDURE GI Surgical History: Reports: Appendectomy, Colonoscopy, Hernia, Inguinal, Hernia Repair/Other Other GI Surgeries/Procedures: LEFT INGUINAL HERNIA REPAIR OCTOBER 2014 Endocrine Surgical History: Reports: None Other Musculoskeletal Surgeries/Procedures:: HX OF RIGHT WRIST FUSION, ulna surgery Social & Family History - Family History Cardiac: Reports: Hypertension, [place] GI: Reports: None Endocrine/Metabolic: Reports: Diabetes, type II - Tobacco Use Smoking Status *Q: Never Smoker - Caffeine Use Caffeine Use: Reports: Coffee ED ROS GENERAL - Review of Systems Review Of Systems: See Below Constitutional: Reports: Chills, Diaphoresis, Decreased Appetite. Denies: Fever HEENT: Denies: Throat Pain Respiratory: Reports: Shortness of Breath. Denies: Pleuritic Chest Pain (Now better) Cardiovascular: Denies: Chest Pain GI/Abdominal: Reports: Abdominal Pain (Gone), Diarrhea, Nausea, Vomiting Musculoskeletal: Reports: Other (Generalized achiness today) Skin: Denies: Rash Neurological: Reports: Dizziness, Weakness (Was severe, now better generalized) ED EXAM, GENERAL - Physical Exam Exam: See Below General Appearance: Alert, No Apparent Distress Eye Exam: Bilateral Eye: PERRL Throat/Mouth: Other Head: Atraumatic (Oral mucosa is dry) Neck: Supple Respiratory/Chest: No Respiratory Distress, Lungs Clear, Normal Breath Sounds Cardiovascular: Tachycardia GI/Abdominal: Soft, Non-Tender. No: Guarding Rectal (Males) Exam: Other (There is small amount of brown stool on rectal exam , trace heme positive) Back Exam: No: CVA Tenderness (L), CVA Tenderness (R) Extremities: Normal Inspection. No: Pedal Edema, Leg Pain, Increased Warmth, Redness Neurological: Alert, Oriented, No Motor/Sensory Deficits Skin Exam: Pallor (On arrival to ED, no longer diaphoretic) EKG INTERPRETATION EKG Date: 01/05/20 Rhythm: NSR [place]: Normal P-Wave: Present QRS: Other (There are Q waves in leads III, AVF and V2.) Course - Vital Signs Last Recorded V/S: Last Vital Signs Temp Pulse 109 H 01/05/20 17:35 Resp 31 H 01/05/20 17:35 BP 145/77 H 01/05/20 17:35 Pulse Ox 91 L 01/05/20 17:35 - Orders/Labs/Meds Orders: Active Orders 24 hr Category Date Time Status EKG 12 Lead [EKG Documentation Completion] [RC] STAT Care 01/05/20 17:49 Active Oxygen Therapy [RC] ASDIRECTED Care 01/05/20 17:49 Active Peripheral IV Care [RC] . DIRECTED Care 01/05/20 17:49 Active CULTURE STOOL + SHIGATOX [RM] Stat Lab 01/05/20 20:17 Ordered CULTURE URINE [RM] Stat Lab 01/05/20 18:20 Received ROTAVIRUS DIRECT ANTIGEN STOOL [OP] Stat Lab 01/05/20 20:17 Ordered WBC, STOOL [OP] Stat Lab 01/05/20 20:17 Ordered Lactated Ringers [Ringers, Lactated] 1,000 ml Med 01/05/20 18:00 Active IV ASDIRECTED Sodium Chloride 0.9% [Saline Flush] Med 01/05/20 17:49 Active 10 ml FLUSH ASDIRECTED PRN Peripheral IV Insertion Pediatric [OM.PC] Routine Oth 01/05/20 17:49 Ordered Medication Orders Lactated Ringer's (Ringers, Lactated) 1,000 mls @ 150 mls/hr IV ASDIRECTED MARCIA Last Infusion: 01/05/20 18:25 Dose: 999 mls/hr Admin: 01/05/20 17:56 Dose: 150 mls/hr Sodium Chloride (Saline Flush) 10 ml FLUSH ASDIRECTED PRN PRN Reason: Keep Vein Open Last Admin: 01/05/20 17:57 Dose: 10 ml Labs: Laboratory Tests 01/05/20 01/05/20 01/05/20 Range/Units 17:40 17:40 17:40 WBC 3.70 L (4.23-9.07) K/mm3 RBC 4.99 (4.63-6.08) M/mm3 Hgb 14.2 (13.7-17.5) gm/dl Hct 42.4 (40.1-51.0) % MCV 85.0 (79.0-92.2) fl MCH 28.5 (25.7-32.2) pg MCHC 33.5 (32.2-35.5) g/dl RDW Std Deviation 41.9 (35.1-43.9) fL Plt Count 129 L (163-337) K/mm3 MPV 11.4 (9.4-12.3) fl Neut % (Auto) 93.2 H (34.0-67.9) % Lymph % (Auto) 5.7 L (21.8-53.1) % [place] % (Auto) 0.8 L (5.3-12.2) % Eos % (Auto) 0.3 L (0.8-7.0) Baso % (Auto) 0.0 L (0.1-1.2) % Neut # (Auto) 3.45 (1.78-5.38) K/mm3 Lymph # (Auto) 0.21 L (1.32-3.57) K/mm3 [place] # (Auto) 0.03 L (0.30-0.82) K/mm3 Eos # (Auto) 0.01 L (0.04-0.54) K/mm3 Baso # (Auto) 0.00 L (0.01-0.08) K/mm3 Manual Slide Review Abnormal smear Sodium 138 (136-145) mEq/L Potassium 3.5 (3.5-5.1) mEq/L Chloride 102 (98-107) mEq/L Carbon Dioxide 21 (21-32) mEq/L Anion Gap 18.5 H (5-15) BUN 17 (7-18) mg/dL Creatinine 1.3 (0.7-1.3) mg/dL Est Cr Clr Drug Dosing 55.37 mL/min Estimated GFR (MDRD) 55 (>60) mL/min BUN/Creatinine Ratio 13.1 L (14-18) Glucose 127 H (80-115) mg/dL Calcium 9.3 (8.5-10.1) mg/dL Total Bilirubin 1.4 H (0.2-1.0) mg/dL AST 16 (15-37) U/L ALT 28 (16-63) U/L Alkaline Phosphatase 54 (46-116) U/L Troponin I < 0.017 (0.00-0.056) ng/mL NT-Pro-B Natriuret Pep 333 H (0-125) pg/mL Total Protein 7.1 (6.4-8.2) g/dl Albumin 4.0 (3.4-5.0) g/dl Globulin 3.1 gm/dL Albumin/Globulin Ratio 1.3 (1-2) Urine Color (Yellow) Urine Appearance (Clear) Urine pH (5.0-8.0) Ur Specific [place] (1.005-1.030) Urine Protein (Negative) Urine Glucose (UA) (Negative) Urine Ketones (Negative) Urine Occult Blood (Negative) Urine Nitrite (Negative) Urine Bilirubin (Negative) Urine Urobilinogen (0.2-1.0) Ur Leukocyte Esterase (Negative) Urine RBC (0-5) /hpf Urine WBC (0-5) /hpf Ur Epithelial Cells (0-5) /hpf Urine Bacteria (FEW) /hpf Urine Mucus (FEW) /hpf 01/05/20 01/05/20 Range/Units 18:20 22:09 WBC (4.23-9.07) K/mm3 RBC (4.63-6.08) M/mm3 Hgb (13.7-17.5) gm/dl Hct (40.1-51.0) % MCV (79.0-92.2) fl MCH (25.7-32.2) pg MCHC (32.2-35.5) g/dl RDW Std Deviation (35.1-43.9) fL Plt Count (163-337) K/mm3 MPV (9.4-12.3) fl Neut % (Auto) (34.0-67.9) % Lymph % (Auto) (21.8-53.1) % [place] % (Auto) (5.3-12.2) % Eos % (Auto) (0.8-7.0) Baso % (Auto) (0.1-1.2) % Neut # (Auto) (1.78-5.38) K/mm3 Lymph # (Auto) (1.32-3.57) K/mm3 [place] # (Auto) (0.30-0.82) K/mm3 Eos # (Auto) (0.04-0.54) K/mm3 Baso # (Auto) (0.01-0.08) K/mm3 Manual Slide Review Sodium (136-145) mEq/L Potassium (3.5-5.1) mEq/L Chloride (98-107) mEq/L Carbon Dioxide (21-32) mEq/L Anion Gap (5-15) BUN (7-18) mg/dL Creatinine (0.7-1.3) mg/dL Est Cr Clr Drug Dosing mL/min Estimated GFR (MDRD) (>60) mL/min BUN/Creatinine Ratio (14-18) Glucose (80-115) mg/dL Calcium (8.5-10.1) mg/dL Total Bilirubin (0.2-1.0) mg/dL AST (15-37) U/L ALT (16-63) U/L Alkaline Phosphatase (46-116) U/L Troponin I 0.498 H* (0.00-0.056) ng/mL NT-Pro-B Natriuret Pep (0-125) pg/mL Total Protein (6.4-8.2) g/dl Albumin (3.4-5.0) g/dl Globulin gm/dL Albumin/Globulin Ratio (1-2) Urine Color Yellow (Yellow) Urine Appearance Clear (Clear) Urine pH 5.5 (5.0-8.0) Ur Specific [place] 1.025 (1.005-1.030) Urine Protein 1+ H (Negative) Urine Glucose (UA) Negative (Negative) Urine Ketones Negative (Negative) Urine Occult Blood 1+ H (Negative) Urine Nitrite Negative (Negative) Urine Bilirubin Negative (Negative) Urine Urobilinogen 0.2 (0.2-1.0) Ur Leukocyte Esterase 1+ H (Negative) Urine RBC 0-5 (0-5) /hpf Urine WBC 10-20 H (0-5) /hpf Ur Epithelial Cells 0-5 (0-5) /hpf Urine Bacteria Few (FEW) /hpf Urine Mucus Not seen (FEW) /hpf Meds: Medications Generic Name Dose Route Start Last Admin Trade Name Zelda PRN Reason Stop Dose Admin Lactated Ringer's 1,000 mls @ 150 mls/hr 01/05/20 18:00 01/05/20 18:25 Ringers, Lactated IV 999 mls/hr ASDIRECTED MARCIA Infusion Sodium Chloride 10 ml 01/05/20 17:49 01/05/20 17:57 Saline Flush FLUSH 10 ml ASDIRECTED PRN Administration Keep Vein Open Discontinued Medications Generic Name Dose Route Start Last Admin Trade Name Zelda PRN Reason Stop Dose Admin Aspirin 324 mg 01/05/20 23:49 Aspirin PO 01/05/20 23:50 ONETIME ONE Ceftriaxone Sodium 2 gm/ 100 mls @ 200 mls/hr 01/05/20 20:01 01/05/20 20:13 Sodium Chloride IV 01/05/20 20:30 200 mls/hr ONETIME ONE Administration Ibuprofen 400 mg 01/05/20 22:56 01/05/20 23:24 Motrin PO 01/05/20 22:57 400 mg ONETIME ONE Administration Ondansetron HCl 4 mg 01/05/20 17:49 01/05/20 17:57 Zofran IVPUSH 01/05/20 17:50 4 mg ONETIME ONE Administration Rosuvastatin Calcium 20 mg 01/05/20 23:50 Crestor PO 01/05/20 23:51 ONETIME ONE - Re-Assessments/Exams Free Text/Narrative Re-Assessment/Exam: 01/05/20 19:47 Patient or EMS did not volunteer the history initially to me that he had had about 12 episodes of diarrhea earlier today, he had related that he had one large episode of diarrhea. He did appear volume depleted on arrival to ED and has continued to show evidence of that. CO2 did come back low at 21 and anion gap elevated at 18.5. Initial BP was 145/77 and than repeat readings have been low in the upper 90 to lower 100 range systolic. He arrive with a heart rate of 110 that is now in the low 90's. His color has improved, he feels better, no chest or abd pain at this time. He has been give 1 of L lactated Ringer's over the last 90 minutes. His troponin was normal, chest x-ray normal, UA does show at least a mild UTI leukocyte positive on the dipstick and elevated WBCs on the microscopic. Urine culture has been ordered. Rocephin 2 g IV ordered. It is now well past change of shift. I'm going to transfer care to Dr. Doss who has come on for the shift lab technician. The plan will be to give the IV antibiotics, further IV fluid and do a 3 hour troponin and then evaluate if he needs to be admitted to the hospital for further treatment or if well enough to go home. Departure - Departure Disposition: Refer to Observation Clinical Impression: Elevated troponin, Dehydration Hypotension Qualifiers: Hypotension type: hypotension due to hypovolemia Qualified Code(s): I95.89 - Other hypotension Diarrhea Qualifiers: Diarrhea type: unspecified type Qualified Code(s): R19.7 - Diarrhea, unspecified Sepsis Event Note - Evaluation Sepsis Screening Result: No Definite Risk - Focused Exam Vital Signs: Vital Signs Pulse Resp BP Pulse Ox 01/05/20 17:35 109 H 31 H 145/77 H 91 L Date Exam was Performed: 01/05/20 Time Exam was Performed: 19:41 - My Orders Last 24 Hours: My Active Orders 01/05/20 20:17 CULTURE STOOL + SHIGATOX [RM] Stat ROTAVIRUS DIRECT ANTIGEN STOOL [OP] Stat WBC, STOOL [OP] Stat - Assessment/Plan Last 24 Hours: My Active Orders 01/05/20 20:17 CULTURE STOOL + SHIGATOX [RM] Stat ROTAVIRUS DIRECT ANTIGEN STOOL [OP] Stat WBC, STOOL [OP] Stat <Gurpreet Doss - Last Filed: 01/05/20 23:58> Course - Re-Assessments/Exams Free Text/Narrative Re-Assessment/Exam: 01/05/20 20:24 I spoke to the patient and the family. He is feeling better though still somewhat weak. His pulse is now down in the upper 80s though his blood pressure is still hovering around 80 systolic which is not normal for him. He feels like he drained but he is not hurting and is not short of breath and he is not sweating. He does have an extensive history of cardiovascular problems and he is only gotten 1 L of fluids and he reiterated he had 10-12 diarrhea stools today. He cannot think of anything he might have eaten yesterday or today that would have caused this. He did not denies any vomiting though he has had short episodes of nausea. It was reported that his stool was trace heme positive but not grossly bloody. We will repeat a troponin in about 30 minutes and if he is able to give a stool we will send it for culture and other studies. We will continue to monitor him. Getting a gram of Rocephin because of a probable urinary tract infection. Urine culture and blood cultures have been done. 01/05/20 23:44 The nurse did orthostatic vital signs and they did not change please see the nursing notes. 01/05/20 23:[address] Abdi reguarding the patient presentation as well as talking with Dr. Obrien. Dr. Obrien suggests that the blip in the troponin is related to the series of events the patient is gone through today and the stress of it in the low blood pressure. He suggested that the patient just needs to be observed and the troponins trended certain that this resolves. If it seems to continue to worsen even though the patient is having no particular symptoms then he suggest we consult them again. Please note that during that time we have been watching the patient in the ER he has not really complained of any chest pressure or chest pain. Presently he is feeling good and his vital signs have come back to normal and he is not orthostatic. 01/05/20 23:52 The patient received a aspirin as well as rosuvastatin 20 mg p.o. in the ER as per Dr. Abdi. Please note that the first troponin when he arrived to the ER was < 0.017-second troponin about 3 hours or so later was 0.498. Departure - Departure Time of Disposition: 23:51 Condition: Fair Sepsis Event Note - Focused Exam Date Exam was Performed: 01/05/20 Time Exam was Performed: 23:56 ED Communication - ED Communication Date/Time Date: 01/05/20 Time Called: 23:25 - Discussed Case With (1) Discussed Case With (1): Other Provider (Consumer Education Specialist on-call for Dr. Meza) Person/s Notified (1): Amrit Obrien (I consulted with him regarding the patient)
[2020-01-05] MEDS ORDERED: cefTRIAXone 2 GM in Sodium Chloride 0.9% 100 ML IV ONE (20:01)
[2020-01-05] MEDS ORDERED: Ibuprofen 400 MG Tab PO ONE (22:56)
[2020-01-05] MEDS ORDERED: Aspirin 81 MG Tab.Chew PO ONE (23:49)
[2020-01-05] MEDS ORDERED: Rosuvastatin 10 MG Tab PO ONE (23:50)
[2020-01-06] MEDS ORDERED: Sodium Chloride 0.9% 1,000 ML IV SCH (01:00)
[2020-01-06 08:24] LABS: HEMOGLOBIN A1C 5.7 % (4.50-6.20)
[2020-01-06] MEDS ORDERED: Rosuvastatin 10 MG Tab PO SCH (09:00)
[2020-01-06] MEDS: Lactated Ringers 1,000 ML IV SCH ×2 (10:13→23:53)
[2020-01-06] MEDS: Magnesium Sulfate/Water 2 GM in Premix Bag 1 BAG IV SCH ×2 (10:14→12:33)
--- NOTE | 2020-01-06 12:10 | PCM.HP.2 ---
H&P History of Present Illness - General Date of Service: 01/06/20 Admit Problem/Dx: Admission Diagnosis/Problem Admission Diagnosis/Problem Elevated troponin I level - History of Present Illness Initial Comments - Free Text/Narative: 69-year-old male has been brought in by [facility] with nausea, near syncope, difficulty breathing. Patient states that he was aware of decreased appetite at lunchtime today about 6 hours ago and just has not felt "totally normal on day today". Then a short time ago onset of severe nausea, severe dizziness "couldn't breathe". He did call 911. [facility] did respond , did call for [facility] ambulance intercept, was given oxygen, transported here without further incident. EMS arrival he was noted to be pale, diaphoretic which gradually did resolve while in route to the ED. He does have history of hypertension, history of coronary artery disease and also does have history of rhythm abnormalities". He has not been coughing today but also family notes that he did not get a flu shot this year. 19:35. Just found out a short time ago that he actually awakened with diarrhea this past morning about 12 episodes today. Told the triage nurse that there may have been some dark stools mixed in with this but nothing severely black or tarry. No rosas blood. He is on eliquis blood thinner medication and 3 hypertensive meds in addition to his other medications. He is not diabetic. - Related Data Allergies/Adverse Reactions: Allergies Allergy/AdvReac Type Severity Reaction Status Date / Time propafenone Allergy Cannot Verified 03/01/18 07:32 Remember amiodarone AdvReac dermatomysi Verified 02/28/18 15:33 tis rosuvastatin AdvReac dermatomysi Verified 03/01/18 07:30 tis Home Medications: Home Meds Hydroxychloroquine [Plaquenil] 200 mg PO BID 11/06/14 [History] carvediloL [Carvedilol] 12.5 mg PO BID 11/06/14 [History] mycophenolate mofetiL [Cellcept] 1,000 mg PO BID 05/20/15 [History] Flecainide Acetate 100 mg PO BID 06/07/17 [History] Spironolactone [Aldactone] 25 mg PO DAILY 06/07/17 [History] Cholecalciferol (Vitamin D3) [Vitamin D3] 2,000 unit PO DAILY 02/28/18 [History] Famotidine 20 mg PO DAILY PRN 02/28/18 [History] Naproxen Sodium 220 mg PO TID PRN 02/28/18 [History] Vitamin A 25,000 unit PO DAILY 03/01/18 [History] Apixaban [Eliquis] 5 mg PO BID 01/05/20 [History] Losartan Potassium 100 mg PO DAILY 01/06/20 [History] Past Medical History HEENT History: Reports: Impaired Vision, Other (See Below) Other HEENT History: WEARS GLASSES, HX OF RETINITIS PIGMENTOSA Cardiovascular History: Reports: Afib, Hypertension, Other (See Below) Other Cardiovascular History: LEAKING MITRAL VALVE, enlarged aorta, ventricular tachycardia, loop recorder Respiratory History: Reports: SOB Other Respiratory History: PT REPORTS SOB RELATED TO DERMATOMYOSITITS Gastrointestinal History: Reports: Other (See Below) Other Gastrointestinal History: CURRENT RIGHT INGUINAL HERNIA Genitourinary History: Reports: Other (See Below) Other Genitourinary History: erectile dysfunction, acute UTI CLIENT DEVELOPMENT MANAGER History: Reports: None Musculoskeletal History: Reports: Other (See Below) Other Musculoskeletal History: 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, bilateral knee / shoulder and left hip pain Neurological History: Reports: Other (See Below) Other Neuro History: HX OF MUSCLE WEAKNESS RELATED TO DERMATOMYOSITIS Psychiatric History: Reports: None Endocrine/Metabolic History: Reports: None Hematologic History: Reports: None Other Immunologic History: DERMATOMYOSITIS Oncologic (Cancer) History: Reports: None Other Dermatologic History: dermatamytosis, hx of shingles - Infectious Disease History Infectious Disease History: Reports: Shingles - Past Surgical History Head Surgeries/Procedures: Reports: None HEENT Surgical History: Reports: Cataract Surgery Other HEENT Surgeries/Procedures: HX OF BILATERAL CATARACT SURGERY AND BLEPHAROPLASTY PROCEDURE GI Surgical History: Reports: Appendectomy, Colonoscopy, Hernia, Inguinal, Hernia Repair/Other, Other (See Below) Other GI Surgeries/Procedures: LEFT INGUINAL HERNIA REPAIR OCTOBER 2014, EGD Endocrine Surgical History: Reports: None Other Musculoskeletal Surgeries/Procedures:: HX OF RIGHT WRIST FUSION, ulna surgery Social & Family History - Family History Cardiac: Reports: Hypertension, AL, Other (See Below) Other Cardiac Family History: heart disease GI: Reports: None Endocrine/Metabolic: Reports: Diabetes, type II, Hyperthyroidism - Tobacco Use Smoking Status *Q: Never Smoker Second Hand Smoke Exposure: No - Caffeine Use Caffeine Use: Reports: Coffee, Soda - Recreational Drug Use Recreational Drug Use: No H&P Review of Systems - Review of Systems: Review Of Systems: See Below General: Reports: Chills, Malaise, Weakness, Diaphoresis, Decreased Appetite. Denies: Fever HEENT: Reports: Glasses. Denies: Headaches, Hearing Changes, Rhinitis, Post Nasal Drip, Sinus Congestion, Sore Throat, Vertigo Pulmonary: Reports: Shortness of Breath. Denies: Wheezing, Pleuritic Chest Pain , Cough, Sputum Cardiovascular: Reports: Edema. Denies: Chest Pain, Palpitations, Dyspnea on Exertion, Orthopnea, PND, Lightheadedness, Syncope Gastrointestinal: Reports: Abdominal Pain, Diarrhea, Decreased Appetite, Distension. Denies: Constipation, Difficulty Swallowing, Flatus, Hematemesis, Hematochezia, Melena, Mucous in Stool, Nausea, Vomiting Genitourinary: Reports: Retention, Other (suprapubic pressure upon voiding). Denies: Dysuria, Frequency, Burning, Pain Musculoskeletal: Reports: Muscle Pain. Denies: Joint Pain, Joint Swelling, Muscle Stiffness Psychiatric: Denies: Confusion, Depression, Mood Lability, Anxiety Neurological: Denies: Dizziness, Headache, Numbness Exam - Exam Exam: See Below - Vital Signs Vital Signs: Last Vital Signs Temp 98.1 F 01/06/20 07:56 Pulse 66 01/06/20 07:56 Resp 18 01/06/20 07:56 BP 101/58 L 01/06/20 07:56 Pulse Ox 95 01/06/20 07:56 Orthostatic Blood Pressure [ 97/56 Standing] Orthostatic Blood Pressure [ 110/58 Sitting] Orthostatic Blood Pressure [ 101/71 Supine] Weight: 108.272 kg - Exam General: Alert, Oriented, Cooperative. No: Mild Distress, Moderate Distress, Severe Distress HEENT: Conjunctiva Clear, Mucosa Moist & [place], Nares Patent, Normal Nasal Septum , Pupils Equal, Pupils Reactive Neck: Supple, Trachea Midline, +2 Carotid Pulse wo Bruit, Full Range of Motion. No: Lymphadenopathy Lungs: Clear to Auscultation, Normal Respiratory Effort. No: Crackles, Rales, Rhonchi, Wheezing Cardiovascular: Regular Rate, Regular Rhythm. No: Systolic Murmur, Diastolic Murmur, Rubs, Gallop/S3, Gallop/S4 GI/Abdominal Exam: Normal Bowel Sounds, Soft, Non-Tender. No: Distended, Guarding, Rigid, Rebound Back Exam: Normal Inspection. No: CVA Tenderness (L), CVA Tenderness (R) Extremities: Normal Inspection, Normal Range of Motion, Non-Tender, No Pedal Edema - Patient Data Result Diagrams: 01/06/20 07:55 01/06/20 07:04 Sepsis Event Note - Evaluation Sepsis Screening Result: No Definite Risk - Focused Exam Vital Signs: Vital Signs Temp Pulse Resp BP BP Pulse Ox 01/06/20 07:56 98.1 F 66 18 101/58 L 95 01/06/20 04:45 102/58 L 01/06/20 04:12 98.2 F 66 16 89/51 L 92 L 01/06/20 04:00 90/48 L 01/06/20 00:28 97.5 F 74 20 109/68 95 Date Exam was Performed: 01/06/20 Time Exam was Performed: 21:23 - Problem List (1) Diarrhea SNOMED Code(s): 54291187 ICD Code: R19.7 - DIARRHEA, UNSPECIFIED Status: Acute Current Visit: Yes Qualifiers: Diarrhea type: unspecified type Qualified Code(s): R19.7 - Diarrhea, unspecified (2) Urinary tract infection SNOMED Code(s): 16136638 ICD Code: N39.0 - URINARY TRACT INFECTION, SITE NOT SPECIFIED Status: Acute Current Visit: Yes (3) Volume depletion SNOMED Code(s): 14301866 ICD Code: E86.9 - VOLUME DEPLETION, UNSPECIFIED Status: Acute Current Visit: Yes (4) Elevated troponin SNOMED Code(s): 627866655, 671936562, 671201948 ICD Code: R79.89 - OTHER SPECIFIED ABNORMAL FINDINGS OF BLOOD CHEMISTRY Status: Acute Current Visit: Yes (5) Hypertension SNOMED Code(s): 95315858 ICD Code: I10 - ESSENTIAL (PRIMARY) HYPERTENSION Status: Acute Current Visit: Yes (6) Dermatomyositis SNOMED Code(s): 949145388 ICD Code: M33.90 - DERMATOPOLYMYOSITIS, UNSP, ORGAN INVOLVEMENT UNSPECIFIED Status: Acute Current Visit: Yes (7) Immunosuppressed status SNOMED Code(s): 89120015 ICD Code: D89.9 - DISORDER INVOLVING THE IMMUNE MECHANISM, UNSPECIFIED Status: Acute Current Visit: Yes (8) Thrombocytopenia SNOMED Code(s): 846014858 ICD Code: D69.6 - THROMBOCYTOPENIA, UNSPECIFIED Status: Acute Current Visit: Yes (9) Total bilirubin, elevated SNOMED Code(s): 791817421272111 ICD Code: R17 - UNSPECIFIED JAUNDICE Status: Acute Current Visit: Yes (10) Atrial fibrillation SNOMED Code(s): 46944199 ICD Code: I48.91 - UNSPECIFIED ATRIAL FIBRILLATION Status: Acute Current Visit: Yes (11) Status post placement of implantable loop recorder SNOMED Code(s): 606383467, 171834882, 456159500 ICD Code: Z95.818 - PRESENCE OF OTHER CARDIAC IMPLANTS AND GRAFTS Status: Acute Current Visit: Yes (12) Paroxysmal supraventricular tachycardia SNOMED Code(s): 40799417 ICD Code: I47.1 - SUPRAVENTRICULAR TACHYCARDIA Status: Acute Current Visit: No Problem List Initiated/Reviewed/Updated: Yes Assessment/Plan Comment:: Diarrhea Volume depletion Elevated troponin 10 episodes of diarrhea prior to admission Signs of volume depletion on physical exam on admission Elevated troponin, likely secondary to type 2 [place] (demand ischemia) EKG with Q waves on inferior leads PLAN - Trend troponin - Repeat EKG - Right sided EKG - Lipid panel - HbA1c Urinary tract infection Suprapubic pressure + difficulty voiding Pathologic UA PLAN - Continue ceftriaxone - F/U urine culture Hypertension BP on admission 145/77 PLAN - Continue home medications Dermatomyositis Immunosuppressed status Chronic hydroxychloroquine and mycophenolate mofetil Statins are contraindicated No acute issues PLAN - Continue home medications Atrial fibrillation Status post placement of implantable loop recorder Paroxysmal supraventricular tachycardia HR on admission 109 EKG with sinus rhythm Patient of Dr. Meza On Eliquis PLAN - Needs follow up with cardiology on discharge - Telemetry during admission - Continue home medications PROPHYLAXIS DVT- home Eliquis GI- not indicated CODE STATUS: FULL CODE DISPOSITION: Patient will be admitted under observation to medical floor pending troponin trend and echocardiogram in the morning. - Mortality Measure Prognosis:: Good
[2020-01-06] MEDS: Aspirin 81 MG Tab.Chew PO SCH (12:39)
[2020-01-06] MEDS: LOSARTAN 100 MG PO SCH (12:39)
[2020-01-06] MEDS: Carvedilol 12.5 MG Tab PO SCH ×2 (12:39→20:15)
[2020-01-06] MEDS: SPIRONOLACTONE 25 MG PO SCH (12:39)
[2020-01-06] MEDS: MYCOPHENOLATE MOFETIL 500 MG PO SCH ×2 (12:40→20:16)
[2020-01-06] MEDS: HYDROXYCHLOROQUINE 200 MG PO SCH ×2 (12:40→20:16)
[2020-01-06] MEDS: FLECAINIDE 100 MG PO SCH ×2 (12:40→20:16)
[2020-01-06] MEDS ORDERED: cefTRIAXone 1 GM in Sodium Chloride 0.9% 100 ML IV SCH ×2 (14:00→20:00)
[2020-01-06] MEDS: Apixaban 5 MG Tab PO SCH (20:15)
[2020-01-06] MEDS ORDERED: Losartan 100 MG Tab PO SCH (21:00)
--- NOTE | 2020-01-07 07:34 | PCM.PN ---
- General Info Date of Service: 01/07/20 Admission Dx/Problem (Free Text): Admission Diagnosis/Problem Admission Diagnosis/Problem Elevated troponin I level - Patient Data Vitals - Most Recent: Last Vital Signs Temp 98.1 F 01/07/20 04:56 Pulse 63 01/07/20 04:56 Resp 14 01/07/20 04:56 BP 106/68 01/07/20 04:56 Pulse Ox 92 L 01/07/20 04:56 Orthostatic Blood Pressure [ 97/56 Standing] Orthostatic Blood Pressure [ 110/58 Sitting] Orthostatic Blood Pressure [ 101/71 Supine] Weight - Most Recent: 238 lb 3.2 oz I&O - Last 24 Hours: Intake & Output 01/06/20 01/07/20 01/07/20 22:59 06:59 14:59 Intake Total 2040 1856 Output Total 1175 1075 Balance 865 781 Lab Results Last 24 Hours: Laboratory Results - last 24 hr 01/06/20 01/06/20 01/06/20 Range/Units 07:04 07:04 07:55 WBC 13.41 H (4.23-9.07) K/mm3 RBC 4.65 (4.63-6.08) M/mm3 Hgb 13.3 L (13.7-17.5) gm/dl Hct 40.1 (40.1-51.0) % MCV 86.2 (79.0-92.2) fl MCH 28.6 (25.7-32.2) pg MCHC 33.2 (32.2-35.5) g/dl RDW Std Deviation 43.5 (35.1-43.9) fL Plt Count 122 L (163-337) K/mm3 MPV 11.5 (9.4-12.3) fl Neut % (Auto) 90.7 H (34.0-67.9) % Lymph % (Auto) 5.2 L (21.8-53.1) % Grayson % (Auto) 3.4 L (5.3-12.2) % Eos % (Auto) 0.3 L (0.8-7.0) Baso % (Auto) 0.2 (0.1-1.2) % Neut # (Auto) 12.16 H (1.78-5.38) K/mm3 Lymph # (Auto) 0.70 L (1.32-3.57) K/mm3 Grayson # (Auto) 0.45 (0.30-0.82) K/mm3 Eos # (Auto) 0.04 (0.04-0.54) K/mm3 Baso # (Auto) 0.03 (0.01-0.08) K/mm3 Manual Slide Review Abnormal smear Sodium 142 (136-145) mEq/L Potassium 4.0 (3.5-5.1) mEq/L Chloride 106 (98-107) mEq/L Carbon Dioxide 23 (21-32) mEq/L Anion Gap 17.0 H (5-15) BUN 17 (7-18) mg/dL Creatinine 1.3 (0.7-1.3) mg/dL Est Cr Clr Drug Dosing 51.88 mL/min Estimated GFR (MDRD) 55 (>60) mL/min BUN/Creatinine Ratio 13.1 L (14-18) Glucose 85 (80-115) mg/dL Hemoglobin A1c (4.50-6.20) % Calcium 8.3 L (8.5-10.1) mg/dL Phosphorus 2.9 (2.6-4.7) mg/dL Magnesium 1.5 L (1.8-2.4) mg/dl Troponin I 0.719 H* (0.00-0.056) ng/mL Triglycerides 64 (<150) mg/dL Cholesterol 143 (<200) mg/dL LDL Cholesterol Direct 70 (<100) mg/dL HDL Cholesterol 58.0 (40-59) mg/dL 01/06/20 01/06/20 01/07/20 Range/Units 07:55 11:04 05:26 WBC 9.17 H (4.23-9.07) K/mm3 RBC 4.03 L (4.63-6.08) M/mm3 Hgb 11.4 L D (13.7-17.5) gm/dl Hct 35.3 L (40.1-51.0) % MCV 87.6 (79.0-92.2) fl MCH 28.3 (25.7-32.2) pg MCHC 32.3 (32.2-35.5) g/dl RDW Std Deviation 44.7 H (35.1-43.9) fL Plt Count 106 L (163-337) K/mm3 MPV 12.0 (9.4-12.3) fl Neut % (Auto) (34.0-67.9) % Lymph % (Auto) (21.8-53.1) % [place] % (Auto) (5.3-12.2) % Eos % (Auto) (0.8-7.0) Baso % (Auto) (0.1-1.2) % Neut # (Auto) (1.78-5.38) K/mm3 Lymph # (Auto) (1.32-3.57) K/mm3 [place] # (Auto) (0.30-0.82) K/mm3 Eos # (Auto) (0.04-0.54) K/mm3 Baso # (Auto) (0.01-0.08) K/mm3 Manual Slide Review Sodium (136-145) mEq/L Potassium (3.5-5.1) mEq/L Chloride (98-107) mEq/L Carbon Dioxide (21-32) mEq/L Anion Gap (5-15) BUN (7-18) mg/dL Creatinine (0.7-1.3) mg/dL Est Cr Clr Drug Dosing mL/min Estimated GFR (MDRD) (>60) mL/min BUN/Creatinine Ratio (14-18) Glucose (80-115) mg/dL Hemoglobin A1c 5.70 (4.50-6.20) % Calcium (8.5-10.1) mg/dL Phosphorus (2.6-4.7) mg/dL Magnesium (1.8-2.4) mg/dl Troponin I 0.524 H* (0.00-0.056) ng/mL Triglycerides (<150) mg/dL Cholesterol (<200) mg/dL LDL Cholesterol Direct (<100) mg/dL HDL Cholesterol (40-59) mg/dL 01/07/20 Range/Units 05:26 WBC (4.23-9.07) K/mm3 RBC (4.63-6.08) M/mm3 Hgb (13.7-17.5) gm/dl Hct (40.1-51.0) % MCV (79.0-92.2) fl MCH (25.7-32.2) pg MCHC (32.2-35.5) g/dl RDW Std Deviation (35.1-43.9) fL Plt Count (163-337) K/mm3 MPV (9.4-12.3) fl Neut % (Auto) (34.0-67.9) % Lymph % (Auto) (21.8-53.1) % [place] % (Auto) (5.3-12.2) % Eos % (Auto) (0.8-7.0) Baso % (Auto) (0.1-1.2) % Neut # (Auto) (1.78-5.38) K/mm3 Lymph # (Auto) (1.32-3.57) K/mm3 [place] # (Auto) (0.30-0.82) K/mm3 Eos # (Auto) (0.04-0.54) K/mm3 Baso # (Auto) (0.01-0.08) K/mm3 Manual Slide Review Sodium 141 (136-145) mEq/L Potassium 3.7 (3.5-5.1) mEq/L Chloride 106 (98-107) mEq/L Carbon Dioxide 26 (21-32) mEq/L Anion Gap 12.7 (5-15) BUN 16 (7-18) mg/dL Creatinine 1.1 (0.7-1.3) mg/dL Est Cr Clr Drug Dosing 61.32 mL/min Estimated GFR (MDRD) > 60 (>60) mL/min BUN/Creatinine Ratio 14.5 (14-18) Glucose 109 (80-115) mg/dL Hemoglobin A1c (4.50-6.20) % Calcium 8.5 (8.5-10.1) mg/dL Phosphorus 2.2 L (2.6-4.7) mg/dL Magnesium 2.0 (1.8-2.4) mg/dl Troponin I 0.133 H* (0.00-0.056) ng/mL Triglycerides (<150) mg/dL Cholesterol (<200) mg/dL LDL Cholesterol Direct (<100) mg/dL HDL Cholesterol (40-59) mg/dL Yasmany Results Last 24 Hours: Microbiology 01/06/20 06:05 Stool for WBCs - Final Stool / Feces NO WBC SEEN REFERENCE RANGE: NO WBC SEEN Rotavirus Antigen - Final NEGATIVE ROTAVIRUS ANTIGEN 01/05/20 08:06 Urine Culture - Preliminary Urine, Clean Catch Gram Negative Rods Med Orders - Current: Current Medications Apixaban (Eliquis) 5 mg PO BID [facility] Last Admin: 01/06/20 20:15 Dose: 5 mg Aspirin (Aspirin) 81 mg PO DAILY [facility] Last Admin: 01/06/20 12:39 Dose: Not Given Carvedilol (Coreg) 12.5 mg PO BID [facility] Last Admin: 01/06/20 20:15 Dose: 12.5 mg Flecainide Acetate (Tambocor) 0 mg PO BID [facility] Last Admin: 01/06/20 20:16 Dose: 100 mg Hydroxychloroquine Sulfate (Plaquenil) 200 mg PO BID [facility] Last Admin: 01/06/20 20:16 Dose: 200 mg Lactated Ringer's (Ringers, Lactated) 1,000 mls @ 75 mls/hr IV ASDIRECTED [facility] Last Admin: 01/06/20 23:53 Dose: 75 mls/hr Ceftriaxone Sodium 1 gm/ (Sodium Chloride) 100 mls @ 200 mls/hr IV Q24H [facility] Last Admin: 01/06/20 20:10 Dose: 200 mls/hr Losartan Potassium (Cozaar) 100 mg PO DAILY [facility] Last Admin: 01/06/20 12:39 Dose: 100 mg Mycophenolate (Mofetil 500 Mg Cap) 0 each PO BID [facility] Last Admin: 01/06/20 20:16 Dose: 2 each Sodium Chloride (Saline Flush) 10 ml FLUSH ASDIRECTED PRN PRN Reason: Keep Vein Open Last Admin: 01/05/20 17:57 Dose: 10 ml Spironolactone (Aldactone) 25 mg PO DAILY [facility] Last Admin: 01/06/20 12:39 Dose: 25 mg Discontinued Medications Aspirin (Aspirin) 324 mg PO ONETIME ONE Stop: 01/05/20 23:50 Last Admin: 01/06/20 01:52 Dose: 324 mg Lactated Ringer's (Ringers, Lactated) 1,000 mls @ 150 mls/hr IV ASDIRECTED [facility] Last Infusion: 01/05/20 18:25 Dose: 999 mls/hr Ceftriaxone Sodium 2 gm/ (Sodium Chloride) 100 mls @ 200 mls/hr IV ONETIME ONE Stop: 01/05/20 20:30 Last Admin: 01/05/20 20:13 Dose: 200 mls/hr Sodium Chloride (Normal Saline) 1,000 mls @ 100 mls/hr IV ASDIRECTED [facility] Last Admin: 01/06/20 01:52 Dose: 100 mls/hr Magnesium Sulfate 2 gm/ Premix 50 mls @ 25 mls/hr IV Q1H MARCIA Stop: 01/06/20 11:29 Last Admin: 01/06/20 12:33 Dose: 25 mls/hr Ibuprofen (Motrin) 400 mg PO ONETIME ONE Stop: 01/05/20 22:57 Last Admin: 01/05/20 23:24 Dose: 400 mg Influenza Virus Vaccine (Pharmacy To Dose - Influenza Vaccine) 1 each IM ONETIME ONE Stop: 01/06/20 00:46 Influenza Virus Vaccine (Fluzone High-Dose Syringe) 180 mcg IM .ONCE ONE Stop: 01/06/20 01:01 Ondansetron HCl (Zofran) 4 mg IVPUSH ONETIME ONE Stop: 01/05/20 17:50 Last Admin: 01/05/20 17:57 Dose: 4 mg Rosuvastatin Calcium (Crestor) 20 mg PO ONETIME ONE Stop: 01/05/20 23:51 Last Admin: 01/06/20 19:32 Dose: Not Given Rosuvastatin Calcium (Crestor) 20 mg PO DAILY [facility] Sepsis Event Note - Evaluation Sepsis Screening Result: No Definite Risk - Focused Exam Vital Signs: Vital Signs Temp Pulse Resp BP Pulse Ox 01/07/20 04:56 98.1 F 63 14 106/68 92 L 01/06/20 23:56 98.6 F 76 14 102/56 L 96 01/06/20 20:15 72 117/92 H 01/06/20 20:08 98.8 F 71 14 117/92 H 92 L Date Exam was Performed: 01/07/20 Time Exam was Performed: 08:35 - Problem List & Annotations (1) Atrial fibrillation SNOMED Code(s): 92744789 Code(s): I48.91 - UNSPECIFIED ATRIAL FIBRILLATION Status: Chronic Priority: Medium Current Visit: Yes Qualifiers: Atrial fibrillation type: unspecified Qualified Code(s): I48.91 - Unspecified atrial fibrillation (2) Dehydration SNOMED Code(s): 51909246 Code(s): E86.0 - DEHYDRATION Status: Resolved Priority: High Current Visit: Yes (3) Dermatomyositis SNOMED Code(s): 584269048 Code(s): M33.90 - DERMATOPOLYMYOSITIS, UNSP, ORGAN INVOLVEMENT UNSPECIFIED Status: Chronic Priority: Low Current Visit: No (4) Diarrhea SNOMED Code(s): 54313597 Code(s): R19.7 - DIARRHEA, UNSPECIFIED Status: Acute Priority: High Current Visit: Yes Qualifiers: Diarrhea type: unspecified type Qualified Code(s): R19.7 - Diarrhea, unspecified (5) Elevated troponin SNOMED Code(s): 008868597, 505992613, 227611315 Code(s): R79.89 - OTHER SPECIFIED ABNORMAL FINDINGS OF BLOOD CHEMISTRY Status: Acute Priority: High Current Visit: Yes (6) Immunosuppressed status SNOMED Code(s): 57073430 Code(s): D89.9 - DISORDER INVOLVING THE IMMUNE MECHANISM, UNSPECIFIED Status: Chronic Priority: Medium Current Visit: Yes (7) Status post placement of implantable loop recorder SNOMED Code(s): 425026084, 019622646, 605463691 Code(s): Z95.818 - PRESENCE OF OTHER CARDIAC IMPLANTS AND GRAFTS Status: Chronic Priority: Low Current Visit: Yes (8) Thrombocytopenia SNOMED Code(s): 648956985 Code(s): D69.6 - THROMBOCYTOPENIA, UNSPECIFIED Status: Chronic Priority: Medium Current Visit: Yes (9) Total bilirubin, elevated SNOMED Code(s): 998932347025673 Code(s): R17 - UNSPECIFIED JAUNDICE Status: Acute Priority: High Current Visit: Yes (10) Urinary tract infection SNOMED Code(s): 66171854 Code(s): N39.0 - URINARY TRACT INFECTION, SITE NOT SPECIFIED Status: Acute Priority: High Current Visit: Yes Qualifiers: Urinary tract infection type: acute cystitis Hematuria presence: without hematuria Qualified Code(s): N30.00 - Acute cystitis without hematuria (11) Volume depletion SNOMED Code(s): 23844974 Code(s): E86.9 - VOLUME DEPLETION, UNSPECIFIED Status: Resolved Priority : High Current Visit: Yes (12) Paroxysmal supraventricular tachycardia SNOMED Code(s): 17044673 Code(s): I47.1 - SUPRAVENTRICULAR TACHYCARDIA Status: Chronic Priority: Low Current Visit: No (13) Hypertension SNOMED Code(s): 42858888 Code(s): I10 - ESSENTIAL (PRIMARY) HYPERTENSION Status: Chronic Priority : Medium Current Visit: No Qualifiers: Hypertension type: unspecified Qualified Code(s): I10 - Essential (primary ) hypertension - Problem List Review Problem List Initiated/Reviewed/Updated: Yes - Plan Plan:: Diarrhea Volume depletion Elevated troponin Hypophosphatemia 10 episodes of diarrhea prior to admission Signs of volume depletion on physical exam on admission Elevated troponin, likely secondary to type 2 [place] (demand ischemia) EKG with Q waves on inferior leads Troponin now trending down Lipid panel WNL; A1C 5.7 Stool culture negative, negative for WBC PLAN - Trend troponin - Monitor electrolytes - Telemetry - Supplement phosphorous - Obtain echocardiogram Urinary tract infection Suprapubic pressure + difficulty voiding Pathologic UA PLAN - Continue ceftriaxone - F/U urine culture - gram negative rods thus far Hypertension BP on admission 145/77; 135/100 now PLAN - Continue home medications Dermatomyositis Immunosuppressed status Chronic hydroxychloroquine and mycophenolate mofetil Statins are contraindicated No acute issues PLAN - Continue home medications Atrial fibrillation Status post placement of implantable loop recorder Paroxysmal supraventricular tachycardia HR on admission 109; Now 60 EKG with sinus rhythm Patient of Dr. Meza On Eliquis PLAN - Needs follow up with cardiology on discharge - Telemetry during admission - Continue home medications PROPHYLAXIS DVT- home Eliquis GI- not indicated CODE STATUS: FULL CODE DISPOSITION: Patient will be admitted under observation to medical floor pending troponin trend and echocardiogram in the morning.
[2020-01-07] MEDS: Carvedilol 12.5 MG Tab PO SCH (08:43)
[2020-01-07] MEDS: Apixaban 5 MG Tab PO SCH ×2 (08:43→08:54)
[2020-01-07] MEDS: Aspirin 81 MG Tab.Chew PO SCH (08:43)
[2020-01-07] MEDS: SPIRONOLACTONE 25 MG PO SCH (08:48)
[2020-01-07] MEDS: MYCOPHENOLATE MOFETIL 500 MG PO SCH (08:50)
[2020-01-07] MEDS: FLECAINIDE 100 MG PO SCH (08:54)
[2020-01-07] MEDS: HYDROXYCHLOROQUINE 200 MG PO SCH (08:54)
[2020-01-07] MEDS: LOSARTAN 100 MG PO SCH (08:54)
[2020-01-07] MEDS ORDERED: Phosphorus #1 250 MG Tab PO SCH (09:00)
[2020-01-07 13:04] VITALS: BP 128/104; PULSE 59
--- NOTE | 2020-01-07 13:19 | PCM.DCSUM1 ---
Discharge Summary - Hospital Course HPI Initial Comments: 69-year-old male has been brought in by [facility] ambulance with nausea, near syncope, difficulty breathing. Patient states that he was aware of decreased appetite at lunchtime today about 6 hours ago and just has not felt "totally normal on day today". Then a short time ago onset of severe nausea, severe dizziness "couldn't breathe". He did call 911. [facility] did respond , did call for [facility] intercept, was given oxygen, transported here without further incident. EMS arrival he was noted to be pale, diaphoretic which gradually did resolve while in route to the ED. He does have history of hypertension, history of coronary artery disease and also does have history of rhythm abnormalities". He has not been coughing today but also family notes that he did not get a flu shot this year. 19:35. Just found out a short time ago that he actually awakened with diarrhea this past morning about 12 episodes today. Told the triage nurse that there may have been some dark stools mixed in with this but nothing severely black or tarry. No rosas blood. He is on eliquis blood thinner medication and 3 hypertensive meds in addition to his other medications. He is not diabetic. Diagnosis: Stroke: No - Discharge Data Discharge Date: 01/07/20 (Admit date: 01/06/20) Discharge Disposition: Home, Self-Care 01 Condition: Good - Referral to Home Health Primary Care Physician: Otilia Barrios, DIRECTOR PRINT - Discharge Diagnosis/Problem(s) (1) Atrial fibrillation SNOMED Code(s): 12841779 ICD Code: I48.91 - UNSPECIFIED ATRIAL FIBRILLATION Status: Chronic Priority: Medium Current Visit: Yes Qualifiers: Atrial fibrillation type: unspecified Qualified Code(s): I48.91 - Unspecified atrial fibrillation (2) Dehydration SNOMED Code(s): 93051918 ICD Code: E86.0 - DEHYDRATION Status: Resolved Priority: High Current Visit: Yes (3) Dermatomyositis SNOMED Code(s): 702152290 ICD Code: M33.90 - DERMATOPOLYMYOSITIS, UNSP, ORGAN INVOLVEMENT UNSPECIFIED Status: Chronic Priority: Low Current Visit: No (4) Diarrhea SNOMED Code(s): 04102932 ICD Code: R19.7 - DIARRHEA, UNSPECIFIED Status: Resolved Priority: High Current Visit: Yes Qualifiers: Diarrhea type: unspecified type Qualified Code(s): R19.7 - Diarrhea, unspecified (5) Elevated troponin SNOMED Code(s): 375687924, 965463205, 434597617 ICD Code: R79.89 - OTHER SPECIFIED ABNORMAL FINDINGS OF BLOOD CHEMISTRY Status: Acute Priority: High Current Visit: Yes (6) Immunosuppressed status SNOMED Code(s): 58548718 ICD Code: D89.9 - DISORDER INVOLVING THE IMMUNE MECHANISM, UNSPECIFIED Status: Chronic Priority: Medium Current Visit: Yes (7) Status post placement of implantable loop recorder SNOMED Code(s): 131874379, 868954285, 672703882 ICD Code: Z95.818 - PRESENCE OF OTHER CARDIAC IMPLANTS AND GRAFTS Status: Chronic Priority: Low Current Visit: Yes (8) Thrombocytopenia SNOMED Code(s): 013723523 ICD Code: D69.6 - THROMBOCYTOPENIA, UNSPECIFIED Status: Chronic Priority : Medium Current Visit: Yes (9) Total bilirubin, elevated SNOMED Code(s): 078833436632101 ICD Code: R17 - UNSPECIFIED JAUNDICE Status: Acute Priority: High Current Visit: Yes (10) Urinary tract infection SNOMED Code(s): 89506351 ICD Code: N39.0 - URINARY TRACT INFECTION, SITE NOT SPECIFIED Status: Acute Priority: High Current Visit: Yes Qualifiers: Urinary tract infection type: acute cystitis Hematuria presence: without hematuria Qualified Code(s): N30.00 - Acute cystitis without hematuria (11) Volume depletion SNOMED Code(s): 27667933 ICD Code: E86.9 - VOLUME DEPLETION, UNSPECIFIED Status: Resolved Priority : High Current Visit: Yes (12) Paroxysmal supraventricular tachycardia SNOMED Code(s): 78481001 ICD Code: I47.1 - SUPRAVENTRICULAR TACHYCARDIA Status: Chronic Priority: Low Current Visit: No (13) Hypertension SNOMED Code(s): 83267967 ICD Code: I10 - ESSENTIAL (PRIMARY) HYPERTENSION Status: Chronic Priority : Medium Current Visit: No Qualifiers: Hypertension type: unspecified Qualified Code(s): I10 - Essential (primary ) hypertension - Patient Summary/Data Labs Pending at D/C: Echocardiogram Recommended Follow-up Testing/Procedures: Follow-up with primary care provider within 5-7 days of discharge. -Recommend repeat CBC, CMP, Magnesium, Phosphorous, troponin Follow-up with cardiology as scheduled. Hospital Course: Rosas was admitted to the floor due to elevated troponins and human depletion secondary to diarrhea. Cardiology was contacted by the ED provider due to increase troponins who stated that he believed these changes were from hypotension and volume depletion. He suggested the patient be admitted to the floor to continue to monitor his troponins and ensure they decrease. Multiple EKGs were obtained showing Q waves in the inferior leads but no ST segment changes. Lipid panel was within normal limits and A1c was 5.7. Stool culture was obtained and was negative. Stool was also negative for WBCs. Echocardiogram was obtained and this is still pending with results expected tomorrow.Troponin did get as high as 0.813 and then quickly trended down. Today it was 0.133. Phosphorus was low at 2.2 and was supplemented. Magnesium was low and was supplemented. This was within normal limits today. His diarrhea did resolve. His urine was positive for UTI. Urine culture did grow out pansensitive E. coli. He was started on twice daily Bactrim DS and instructed to take his first dose tonight, 01/07/2020. He was instructed to follow-up with urology should he experience another urinary tract infection. He was also started on a daily aspirin 81 mg. All other home meds were continued. Of note the patient does see Dr. Meza with cardiology in [place]. He instructed to follow-up with him and an appointment was made. Patient does have an implanted loop recorder which he states the plan is to leave this in until the battery runs out and then remove it, as they are still getting readings from it. Otherwise he continued to do well and was asymptomatic today. He was noted to have some left lower extremity discoloration. Per the patient this was worse on admission however it had slowly increased up the leg but did fade. Physical exam was negative for any concerns of DVT. MENA was obtained and was 1.31, which is normal. Patient was instructed to continue to monitor the area. Was instructed to follow-up with primary care provider within 5 to 7 days of discharge and nursing did make an appointment. He was discharged today. He was instructed to return to the emergency room should he notice any leg pain, numbness, tingling, shortness of breath, chest pain, or other symptoms. - Patient Instructions Diet: Heart Healthy Diet Activity: As Tolerated Showering/Bathing: May Shower Notify Provider of: Fever, Increased Pain, Nausea and/or Vomiting Other/Special Instructions: Follow-up with primary care provider within 5-7 days of discharge, sooner if needed. Follow-up with cardiology, Dr. Meza, as scheduled. Recommend re-check CBC, CMP, Magnesium, Phosphorous, and troponin at primary care provider follow-up. Your echocardiogram is still pending. We will send this to your primary care provider. Resume home medications as directed. You were started on an aspirin. Take this daily. Should symptoms return or worsen, contact primary care provider or return to the Emergency Department. - Discharge Plan *PRESCRIPTION DRUG MONITORING PROGRAM REVIEWED*: No *COPY OF PRESCRIPTION DRUG MONITORING REPORT IN PATIENT LEIDY: No Prescriptions/Med Rec: Aspirin 81 mg PO DAILY #30 tab.chew Sulfamethoxazole/Trimethoprim [Septra DS] 1 tab PO BID #10 tablet Home Medications: Home Meds Hydroxychloroquine [Plaquenil] 200 mg PO BID 11/06/14 [History] carvediloL [Carvedilol] 12.5 mg PO BID 11/06/14 [History] mycophenolate mofetiL [Cellcept] 1,000 mg PO BID 05/20/15 [History] Flecainide Acetate 100 mg PO BID 06/07/17 [History] Spironolactone [Aldactone] 25 mg PO DAILY 06/07/17 [History] Cholecalciferol (Vitamin D3) [Vitamin D3] 2,000 unit PO DAILY 02/28/18 [History] Famotidine 20 mg PO DAILY PRN 02/28/18 [History] Naproxen Sodium 220 mg PO TID PRN 02/28/18 [History] Vitamin A 25,000 unit PO DAILY 03/01/18 [History] Apixaban [Eliquis] 5 mg PO BID 01/05/20 [History] Losartan Potassium 100 mg PO DAILY 01/06/20 [History] Aspirin 81 mg PO DAILY #30 tab.chew 01/07/20 [Rx] Sulfamethoxazole/Trimethoprim [Septra DS] 1 tab PO BID #10 tablet 01/07/20 [Rx] Oxygen Therapy Mode: Room Air Patient Handouts: Urinary Tract Infection, Adult, Heart Attack, [id number], Acute Coronary Syndrome Referrals: Otilia Barrios DIRECTOR PRINT [Primary Care Provider] - 01/16/20 11:00 am (Please follow up with your PCP tuesdayjanuary 16 at 11:00. ) Ron Meza MD [Ordering Only Provider] - 01/24/20 10:30 am (This appointment is Sean time, please come at least 15 minutes prior to the appointment to register, bring insurance cards and photo ID.) - Discharge Summary/Plan Comment DC Time >30 min.: Yes (45 mins ) - General Info Date of Service: 01/07/20 Admission Dx/Problem (Free Text: Admission Diagnosis/Problem Admission Diagnosis/Problem Elevated troponin I level Functional Status: Reports: Pain Controlled, Tolerating Diet, Ambulating, Urinating. Denies: New Symptoms - Review of Systems General: Reports: No Symptoms. Denies: Fever, Weakness, Fatigue, Malaise, Chills HEENT: Reports: No Symptoms. Denies: Headaches, Sore Throat Pulmonary: Reports: No Symptoms. Denies: Shortness of Breath, Pleuritic Chest Pain, Cough, Sputum, Wheezing Cardiovascular: Reports: Edema (Chronic left leg ). Denies: Chest Pain, Palpitations, Dyspnea on Exertion Gastrointestinal: Reports: No Symptoms. Denies: Abdominal Pain, Constipation, Diarrhea, Nausea, Vomiting Genitourinary: Reports: No Symptoms. Denies: Pain (resolved ) Musculoskeletal: Reports: No Symptoms Skin: Reports: Other (Discoloration on lower left leg from sock line up to knee. ). Denies: Cyanosis Neurological: Reports: No Symptoms. Denies: Numbness, Tingling, Difficulty Walking, Weakness, Gait Disturbance Psychiatric: Reports: No Symptoms. Denies: Confusion - Patient Data Vitals - Most Recent: Last Vital Signs Temp 97.6 F 01/07/20 13:08 Pulse 59 L 01/07/20 12:43 Resp 20 01/07/20 13:08 BP 128/104 H 01/07/20 12:43 Pulse Ox 95 01/07/20 12:43 Orthostatic Blood Pressure [ 97/56 Standing] Orthostatic Blood Pressure [ 110/58 Sitting] Orthostatic Blood Pressure [ 101/71 Supine] Weight - Most Recent: 238 lb 3.2 oz I&O - Last 24 hours: Intake & Output 01/06/20 01/07/20 01/07/20 22:59 06:59 14:59 Intake Total 4 9908 180 Output Total 8591 4955 Balance 863 051 180 Lab Results - Last 24 hrs: Laboratory Results - last 24 hr 01/07/20 01/07/20 Range/Units 05:26 05:26 WBC 9.17 H (4.23-9.07) K/mm3 RBC 4.03 L (4.63-6.08) M/mm3 Hgb 11.4 L D (13.7-17.5) gm/dl Hct 35.3 L (40.1-51.0) % MCV 87.6 (79.0-92.2) fl MCH 28.3 (25.7-32.2) pg MCHC 32.3 (32.2-35.5) g/dl RDW Std Deviation 44.7 H (35.1-43.9) fL Plt Count 106 L (163-337) K/mm3 MPV 12.0 (9.4-12.3) fl Neutrophils % (Manual) 82 H (40-60) % Band Neutrophils % 0 (0-10) % Lymphocytes % (Manual) 10 L (20-40) % Atypical Lymphs % 0 % Monocytes % (Manual) 6 (2-10) % Eosinophils % (Manual) 2 (0.8-7.0) % Basophils % (Manual) 0 L (0.2-1.2) Platelet Estimate Adequate RBC Morph Comment Normal Sodium 141 (136-145) mEq/L Potassium 3.7 (3.5-5.1) mEq/L Chloride 106 (98-107) mEq/L Carbon Dioxide 26 (21-32) mEq/L Anion Gap 12.7 (5-15) BUN 16 (7-18) mg/dL Creatinine 1.1 (0.7-1.3) mg/dL Est Cr Clr Drug Dosing 61.32 mL/min Estimated GFR (MDRD) > 60 (>60) mL/min BUN/Creatinine Ratio 14.5 (14-18) Glucose 109 (80-115) mg/dL Calcium 8.5 (8.5-10.1) mg/dL Phosphorus 2.2 L (2.6-4.7) mg/dL Magnesium 2.0 (1.8-2.4) mg/dl Troponin I 0.133 H* (0.00-0.056) ng/mL SKY Results - Last 24 hrs: Microbiology 01/05/20 08:06 Urine Culture - Final Urine, Clean Catch Escherichia Coli 01/06/20 06:05 Stool Culture - Preliminary Stool / Feces Shiga Toxin I - Final NEGATIVE FOR SHIGA TOXIN 1 REFERENCE RANGE: NEGATIVE Shiga Toxin II - Final NEGATIVE FOR SHIGA TOXIN 2 REFERENCE RANGE: NEGATIVE 01/06/20 06:05 Stool for WBCs - Final Stool / Feces NO WBC SEEN REFERENCE RANGE: NO WBC SEEN Rotavirus Antigen - Final NEGATIVE ROTAVIRUS ANTIGEN Med Orders - Current: Current Medications Apixaban (Eliquis) 5 mg PO BID [facility] Last Admin: 01/07/20 08:54 Dose: 5 mg Aspirin (Aspirin) 81 mg PO DAILY [facility] Last Admin: 01/07/20 08:43 Dose: 81 mg Carvedilol (Coreg) 12.5 mg PO BID [facility] Last Admin: 01/07/20 08:43 Dose: 12.5 mg Flecainide Acetate (Tambocor) 0 mg PO BID [facility] Last Admin: 01/07/20 08:54 Dose: 100 mg Hydroxychloroquine Sulfate (Plaquenil) 200 mg PO BID [facility] Last Admin: 01/07/20 08:54 Dose: 200 mg Lactated Ringer's (Ringers, Lactated) 1,000 mls @ 75 mls/hr IV ASDIRECTED [facility] Last Admin: 01/06/20 23:53 Dose: 75 mls/hr Ceftriaxone Sodium 1 gm/ (Sodium Chloride) 100 mls @ 200 mls/hr IV Q24H [facility] Last Admin: 01/06/20 20:10 Dose: 200 mls/hr Losartan Potassium (Cozaar) 100 mg PO DAILY [facility] Last Admin: 01/07/20 08:54 Dose: 100 mg Mycophenolate (Mofetil 500 Mg Cap) 0 each PO BID [facility] Last Admin: 01/07/20 08:50 Dose: 2 each Sodium Chloride (Saline Flush) 10 ml FLUSH ASDIRECTED PRN PRN Reason: Keep Vein Open Last Admin: 01/05/20 17:57 Dose: 10 ml Sodium Phosphate (Neutra-Phos) 250 mg PO ONETIME ONE Stop: 01/07/20 13:31 Spironolactone (Aldactone) 25 mg PO DAILY [facility] Last Admin: 01/07/20 08:48 Dose: 25 mg Trimethoprim/Sulfamethoxazole (Septra Ds) 1 tab PO BID [facility] Stop: 01/12/20 21:01 Discontinued Medications Aspirin (Aspirin) 324 mg PO ONETIME ONE Stop: 01/05/20 23:50 Last Admin: 01/06/20 01:52 Dose: 324 mg Lactated Ringer's (Ringers, Lactated) 1,000 mls @ 150 mls/hr IV ASDIRECTED [facility] Last Infusion: 01/05/20 18:25 Dose: 999 mls/hr Ceftriaxone Sodium 2 gm/ (Sodium Chloride) 100 mls @ 200 mls/hr IV ONETIME ONE Stop: 01/05/20 20:30 Last Admin: 01/05/20 20:13 Dose: 200 mls/hr Sodium Chloride (Normal Saline) 1,000 mls @ 100 mls/hr IV ASDIRECTED [facility] Last Admin: 01/06/20 01:52 Dose: 100 mls/hr Magnesium Sulfate 2 gm/ Premix 50 mls @ 25 mls/hr IV Q1H [facility] Stop: 01/06/20 11:29 Last Admin: 01/06/20 12:33 Dose: 25 mls/hr Ibuprofen (Motrin) 400 mg PO ONETIME ONE Stop: 01/05/20 22:57 Last Admin: 01/05/20 23:24 Dose: 400 mg Influenza Virus Vaccine (Pharmacy To Dose - Influenza Vaccine) 1 each IM ONETIME ONE Stop: 01/06/20 00:46 Influenza Virus Vaccine (Fluzone High-Dose 2018- Syringe) 180 mcg IM .ONCE ONE Stop: 01/06/20 01:01 Ondansetron HCl (Zofran) 4 mg IVPUSH ONETIME ONE Stop: 01/05/20 17:50 Last Admin: 01/05/20 17:57 Dose: 4 mg Rosuvastatin Calcium (Crestor) 20 mg PO ONETIME ONE Stop: 01/05/20 23:51 Last Admin: 01/06/20 19:32 Dose: Not Given Rosuvastatin Calcium (Crestor) 20 mg PO DAILY [facility] Sodium Phosphate (Neutra-Phos) 250 mg PO BID [facility] Stop: 01/07/20 21:01 Last Admin: 01/07/20 09:13 Dose: 250 mg - Exam Quality Assessment: Reports: DVT Prophylaxis General: Reports: Alert, Oriented, Cooperative, No Acute Distress HEENT: Reports: Pupils Equal, Pupils Reactive, Mucous Membr. Moist/[place] Neck: Reports: Supple, Trachea Midline Lungs: Reports: Clear to Auscultation, Normal Respiratory Effort Cardiovascular: Reports: Regular Rate, Regular Rhythm GI/Abdominal Exam: Normal Bowel Sounds, Soft, Non-Tender, No Distention (Male) Exam: Deferred Rectal (Males) Exam: Deferred Back Exam: Reports: Normal Inspection, Full Range of Motion Extremities: Normal Range of Motion, Non-Tender, No Pedal Edema, Normal Capillary Refill, Other (Left lower leg discoloration from sock line to below knee. Patient reports this was darker on admission to ED but it has spread up. MENA obtained and is 1.31.). No: Slow Capillary Refill, Muna's Sign, Leg Pain, Increased Warmth, Redness Skin: Reports: Warm, Dry, Intact Neurological: Reports: No New Focal Deficit Psy/Mental Status: Reports: Alert, Normal Affect, Normal Mood
[2020-01-07] MEDS ORDERED: Phosphorus #1 250 MG Tab PO ONE (13:30)
[2020-01-07] MEDS ORDERED: Sulfamethoxazole/Trimethoprim 800-160 MG Tab PO SCH (21:00)
== END 2020-01-07 14:10 | disposition home or self-care (01) ==
LOC: SUPCPDRO 17:33 → JD.ED 17:33 → JD.MS 01-06 00:01
PROVIDERS: ADMIT Internal Medicine; ATTEND Internal Medicine
DX: R79.89 Other specified abnormal findings of blood chemistry (principal); I48.91 Unspecified atrial fibrillation; E86.0 Dehydration; M33.90 Dermatopolymyositis, unspecified, organ involvement unspecified; R19.7 Diarrhea, unspecified; D89.9 Disorder involving the immune mechanism, unspecified; D69.6 Thrombocytopenia, unspecified; I10 Essential (primary) hypertension; I25.10 Atherosclerotic heart disease of native coronary artery without angina pectoris; N39.0 Urinary tract infection, site not specified; B96.20 Unspecified Escherichia coli [E. coli] as the cause of diseases classified elsewhere; E86.9 Volume depletion, unspecified; R17 Unspecified jaundice; I47.1 Supraventricular tachycardia; E83.42 Hypomagnesemia; R06.02 Shortness of breath; E83.39 Other disorders of phosphorus metabolism; Z88.8 Allergy status to other drugs, medicaments and biological substances; Z79.01 Long term (current) use of anticoagulants; Z79.899 Other long term (current) drug therapy; Z95.818 Presence of other cardiac implants and grafts; Z23 Encounter for immunization
CPT/HCPCS: 36415; 71045; 80048; 80053; 80061; 81001; 83036; 83735; 83880; 84100; 84484; 85007; 85025; 85027; 87046; 87086; 87088; 87186; 87425; 87427; 87804; 89055; 90662; 93005; 93306; 96361; 96365; 96366; 96367; 96375; 99285; A9270; G0008; G0378; J0696; J2405; J3475; J7030; J7050; J7120; 90471; 99217; 99219; 99284

== ENCOUNTER 2020-11-09 19:30 | Emergency (ER) | payer MEDICARE, OTHER ==
[2020-11-09] MEDS ORDERED: Sodium Chloride 0.9% 10 ML Syringe FLUSH PRN (19:37)
--- NOTE | 2020-11-09 19:57 | EDM.PDOC ---
ED HPI GENERAL MEDICAL PROBLEM - General Chief Complaint: Chest Pain Stated Complaint: chest pain Time Seen by Provider: 11/09/20 19:36 Source of Information: Reports: Patient, RN Notes Reviewed History Limitations: Reports: No Limitations - History of Present Illness INITIAL COMMENTS - FREE TEXT/NARRATIVE: Patient is a 70-year-old male who presents to the ED for the evaluation of his sudden onset chest pain. Patient notes he has central chest pain, feels crushing, or pressure-like. He noted this started roughly 45 minutes ago, and seem to start in epigastrium and has worked its way up and settled into his left chest. Patient notes he does have a rather extensive history of heart issues. He was admitted to our hospital in December, and monitored for his elevated tro ponin levels. Patient notes he did become extremely diaphoretic, and is clammy on initial exam. Patient's vitals demonstrate a pulse rate of 48 bpm, temperature 96.4 F, respiratory rate of 16, blood pressure is 139/67, his O2 sats are 94% on room air. Patient took a few Tums prior to coming to the ER, as he thought maybe he was having some heartburn type issues. He states that he has not felt pain like this before. He again notes that he is sweaty and feels clammy but has not had a fever. He has no nausea, vomiting or diarrhea, or cough or shortness of breath. - Related Data Allergies Allergy/AdvReac Type Severity Reaction Status Date / Time propafenone Allergy Cannot Verified 11/09/20 19:41 Remember amiodarone AdvReac dermatomysi Verified 11/09/20 19:41 tis rosuvastatin AdvReac dermatomysi Verified 11/09/20 19:41 tis Home Meds: Home Meds Hydroxychloroquine [Plaquenil] 200 mg PO BID 11/06/14 [History] carvediloL [Carvedilol] 12.5 mg PO BID 11/06/14 [History] mycophenolate mofetiL [Cellcept] 1,000 mg PO BID 05/20/15 [History] Flecainide Acetate 100 mg PO BID 06/07/17 [History] Spironolactone [Aldactone] 25 mg PO DAILY 06/07/17 [History] Cholecalciferol (Vitamin D3) [Vitamin D3] 2,000 unit PO DAILY 02/28/18 [History] Famotidine 20 mg PO DAILY PRN 02/28/18 [History] Naproxen Sodium 220 mg PO TID PRN 02/28/18 [History] Vitamin A 25,000 unit PO DAILY 03/01/18 [History] Apixaban [Eliquis] 5 mg PO BID 01/05/20 [History] Losartan Potassium 100 mg PO DAILY 01/06/20 [History] Aspirin 81 mg PO DAILY #30 tab.chew 01/07/20 [Rx] cephALEXin [Keflex] 500 mg PO Q6H #24 capsule 01/07/20 [Rx] Past Medical History HEENT History: Reports: Impaired Vision Other HEENT History: WEARS GLASSES, HX OF RETINITIS PIGMENTOSA Cardiovascular History: Reports: Hypertension, Other (See Below) Other Cardiovascular History: LEAKING MITRAL VALVE, enlarged aorta, ventricular tachycardia, loop recorder. 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 Neurological History: Reports: Other (See Below) Other Neuro History: HX OF MUSCLE WEAKNESS RELATED TO DERMATOMYOSITIS Endocrine/Metabolic History: Reports: Obesity/BMI 30+ Immunologic History: Reports: Other (See Below) Other Immunologic History: DERMATOMYOSITIS - Infectious Disease History Infectious Disease History: Reports: Shingles - Past Surgical History HEENT Surgical History: Reports: Cataract Surgery Other HEENT Surgeries/Procedures: HX OF BILATERAL CATARACT SURGERY AND BLEPHAROPLASTY PROCEDURE GI Surgical History: Reports: Appendectomy, Colonoscopy, Hernia, Inguinal, Hernia Repair/Other Other GI Surgeries/Procedures: LEFT INGUINAL HERNIA REPAIR OCTOBER 2014 Musculoskeletal Surgical History: Reports: Other (See Below) Other Musculoskeletal Surgeries/Procedures:: HX OF RIGHT WRIST FUSION, ulna surgery Social & Family History - Family History Family Medical History: No Pertinent Family History Cardiac: Reports: Hypertension, [place] Other Cardiac Family History: heart disease GI: Reports: None Endocrine/Metabolic: Reports: Diabetes, type II - Tobacco Use Tobacco Use Status *Q: Never Tobacco User - Caffeine Use Caffeine Use: Reports: Coffee, Soda, Tea - Recreational Drug Use Recreational Drug Use: No ED ROS GENERAL - Review of Systems Review Of Systems: Comprehensive ROS is negative, except as noted in HPI. ED EXAM, GENERAL - Physical Exam Exam: See Below Exam Limited By: No Limitations General Appearance: Alert, WD/WN, No Apparent Distress (pt has generalized diaphoresis noted with cool, clammy skin with generalized pallor) Respiratory/Chest: No Respiratory Distress, Lungs Clear, Normal Breath Sounds, No Accessory Muscle Use, Chest Non-Tender Cardiovascular: Normal Peripheral Pulses, Regular Rate, Rhythm, No Edema, No Murmur, Bradycardia Peripheral Pulses: 2+: Radial (L), Radial (R) Neurological: Alert, Oriented, Normal Cognition, No Motor/Sensory Deficits Psychiatric: Normal Affect, Normal Mood Skin Exam: Cool, Diaphoretic (generalized), Pallor (generalized) #1 Interpretation EKG Date: 11/09/20 Time: 19:44 Rhythm: NSR (sinus guy) Rate (Beats/Min): 47 [place]: Normal P-Wave: Present QRS: Normal ST-T: Normal QT: Normal MO/PQ Interval: prolonged Comparison: Change From Previous EKG (only change is sinus guy) EKG Interpretation Comments: No obvious ischemia or acute ST changes noted, reviewed by myself and Dr. العلي. The patient does have a first-degree block, and sinus bradycardia. Course - Vital Signs Last Recorded V/S: Last Vital Signs Temp 96.4 F L 11/09/20 19:36 Pulse 48 L 11/09/20 19:36 Resp 16 11/09/20 19:36 BP 139/67 11/09/20 19:36 Pulse Ox 94 L 11/09/20 19:36 - Orders/Labs/Meds Orders: Active Orders 24 hr Category Date Time Status EKG Documentation Completion [RC] STAT Care 11/09/20 19:37 Active Peripheral IV Care [RC] . DIRECTED Care 11/09/20 19:37 Active Chest 1V Frontal [CR] Stat Exams 11/09/20 19:37 Ordered Sodium Chloride 0.9% [Saline Flush] Med 11/09/20 19:37 Active 10 ml FLUSH ASDIRECTED PRN Peripheral IV Insertion Adult [OM.PC] Stat Oth 11/09/20 19:37 Ordered Medication Orders Sodium Chloride (Saline Flush) 10 ml FLUSH ASDIRECTED PRN PRN Reason: Keep Vein Open Last Admin: 11/09/20 20:02 Dose: 10 ml Documented by: RUBINA Labs: Laboratory Tests 11/09/20 11/09/20 11/09/20 Range/Units 19:40 19:40 19:40 WBC 5.67 (4.23-9.07) K/mm3 RBC 5.17 (4.63-6.08) M/mm3 Hgb 14.7 (13.7-17.5) gm/dl Hct 44.6 (40.1-51.0) % MCV 86.3 (79.0-92.2) fl MCH 28.4 (25.7-32.2) pg MCHC 33.0 (32.2-35.5) g/dl RDW Std Deviation 40.9 (35.1-43.9) fL Plt Count 158 L (163-337) K/mm3 MPV 11.2 (9.4-12.3) fl Neut % (Auto) 68.0 H (34.0-67.9) % Lymph % (Auto) 18.7 L (21.8-53.1) % [place] % (Auto) 11.1 (5.3-12.2) % Eos % (Auto) 1.6 (0.8-7.0) Baso % (Auto) 0.4 (0.1-1.2) % Neut # (Auto) 3.86 (1.78-5.38) K/mm3 Lymph # (Auto) 1.06 L (1.32-3.57) K/mm3 [place] # (Auto) 0.63 (0.30-0.82) K/mm3 Eos # (Auto) 0.09 (0.04-0.54) K/mm3 Baso # (Auto) 0.02 (0.01-0.08) K/mm3 PT 11.9 (9.7-12.0) SECONDS INR 1.11 APTT 25.0 (21.7-31.4) SECONDS Sodium 139 (136-145) mEq/L Potassium 4.5 (3.5-5.1) mEq/L Chloride 104 (98-107) mEq/L Carbon Dioxide 30 (21-32) mEq/L Anion Gap 9.5 (5-15) BUN 26 H (7-18) mg/dL Creatinine 1.4 H (0.7-1.3) mg/dL Est Cr Clr Drug Dosing 50.69 mL/min Estimated GFR (MDRD) 50 (>60) mL/min BUN/Creatinine Ratio 18.6 H (14-18) Glucose 110 (80-115) mg/dL Calcium 9.4 (8.5-10.1) mg/dL Magnesium 1.9 (1.8-2.4) mg/dl Total Bilirubin 0.7 (0.2-1.0) mg/dL AST 37 (15-37) U/L ALT 43 (16-63) U/L Alkaline Phosphatase 53 (46-116) U/L CK-MB (CK-2) 2.1 (0-3.6) ng/ml Troponin I < 0.017 (0.00-0.056) ng/mL NT-Pro-B Natriuret Pep (0-125) pg/mL Total Protein 7.1 (6.4-8.2) g/dl Albumin 4.0 (3.4-5.0) g/dl Globulin 3.1 gm/dL Albumin/Globulin Ratio 1.3 (1-2) // Range/Units 19:40 WBC (4.23-9.07) K/mm3 RBC (4.63-6.08) M/mm3 Hgb (13.7-17.5) gm/dl Hct (40.1-51.0) % MCV (79.0-92.2) fl MCH (25.7-32.2) pg MCHC (32.2-35.5) g/dl RDW Std Deviation (35.1-43.9) fL Plt Count (163-337) K/mm3 MPV (9.4-12.3) fl Neut % (Auto) (34.0-67.9) % Lymph % (Auto) (21.8-53.1) % [place] % (Auto) (5.3-12.2) % Eos % (Auto) (0.8-7.0) Baso % (Auto) (0.1-1.2) % Neut # (Auto) (1.78-5.38) K/mm3 Lymph # (Auto) (1.32-3.57) K/mm3 [place] # (Auto) (0.30-0.82) K/mm3 Eos # (Auto) (0.04-0.54) K/mm3 Baso # (Auto) (0.01-0.08) K/mm3 PT (9.7-12.0) SECONDS INR APTT (21.7-31.4) SECONDS Sodium (136-145) mEq/L Potassium (3.5-5.1) mEq/L Chloride (98-107) mEq/L Carbon Dioxide (21-32) mEq/L Anion Gap (5-15) BUN (7-18) mg/dL Creatinine (0.7-1.3) mg/dL Est Cr Clr Drug Dosing mL/min Estimated GFR (MDRD) (>60) mL/min BUN/Creatinine Ratio (14-18) Glucose (80-115) mg/dL Calcium (8.5-10.1) mg/dL Magnesium (1.8-2.4) mg/dl Total Bilirubin (0.2-1.0) mg/dL AST (15-37) U/L ALT (16-63) U/L Alkaline Phosphatase (46-116) U/L CK-MB (CK-2) (0-3.6) ng/ml Troponin I (0.00-0.056) ng/mL NT-Pro-B Natriuret Pep 207 H (0-125) pg/mL Total Protein (6.4-8.2) g/dl Albumin (3.4-5.0) g/dl Globulin gm/dL Albumin/Globulin Ratio (1-2) Meds: Medications Generic Name Dose Route Start Last Admin Trade Name Freq PRN Reason Stop Dose Admin Sodium Chloride 10 ml 11/09/20 19:37 11/09/20 20:02 Saline Flush FLUSH 10 ml ASDIRECTED PRN Administration Keep Vein Open - Re-Assessments/Exams Free Text/Narrative Re-Assessment/Exam: 11/09/20 19:54 Patient presents to the ED for his ongoing crushing chest pain. Patient's init ial EKG shows no obvious ST abnormalities at this time. There are no flipped T waves. Patient has sinus bradycardia. We will get labs to evaluate for cardiac etiology. Nursing staff told me that shortly after my interview, patient states that his pain has gone, but his O2 sats have lowered into the mid 80s, she placed 2 L of oxygen and we are in the low 90s at the moment. Patient is on Eliquis, I find it somewhat unlikely the patient will have a PE but will add on a D-dimer as well. 11/09/20 20:50 The patient's labs have mostly resulted, troponins negative, CK-MB is negative. Metabolic panel is also unremarkable, BNP is 207. Patient has been taken off of oxygen and is satting 94% on room air, he states that he is chest pain-free at this time. Still awaiting basic blood count for evaluation. Patient's chest x-ray shows no focal infiltrates, patient has a loop recorder present in the chest, costophrenic angles are sharp for portable chest x-ray technique, slight cardiomegaly appreciated with no pulmonary vascular congestion. Official radiology read is pending. 11/09/20 20:59 CBC is unremarkable. Patient is chest pain-free, and O2 sats are 95% on room air. We will discharge him home and have him follow-up with his regular provider sometime early this week. Departure - Departure Time of Disposition: 20:59 Disposition: Home, Self-Care 01 Condition: Good Clinical Impression: Chest pressure Instructions: Nonspecific Chest Pain, Adult, [id number] Referrals: Otilia Barrios [facility] [Primary Care Provider] - Forms: ED Department Discharge Additional Instructions: You were seen in the ER today for your chest pressure/pain. Laboratory evaluation, chest x-ray, EKG all demonstrate that you are not suffering from a heart attack at today's visit, chest x-ray is also negative for any sort of consolidation like pneumonia. I would recommend you follow-up with your regular care provider, sometime this week just to make sure that symptoms are getting better as expected. Please return to the ER at any time if symptoms change or worsen. Sepsis Event Note (ED) - Evaluation Sepsis Screening Result: No Definite Risk - Focused Exam Vital Signs: Vital Signs Temp Pulse Resp BP Pulse Ox 11/09/20 19:36 96.4 F L 48 L 16 139/67 94 L - My Orders Last 24 Hours: My Active Orders 11/09/20 19:37 EKG Documentation Completion [RC] STAT Peripheral IV Care [RC] . DIRECTED Chest 1V Frontal [CR] Stat Sodium Chloride 0.9% [Saline Flush] 10 ml FLUSH ASDIRECTED PRN Peripheral IV Insertion Adult [OM.PC] Stat - Assessment/Plan Last 24 Hours: My Active Orders 11/09/20 19:37 EKG Documentation Completion [RC] STAT Peripheral IV Care [RC] . DIRECTED Chest 1V Frontal [CR] Stat Sodium Chloride 0.9% [Saline Flush] 10 ml FLUSH ASDIRECTED PRN Peripheral IV Insertion Adult [OM.PC] Stat
[2020-11-09 21:11] VITALS: BP 132/68; PULSE 50
--- NOTE | 2020-11-10 08:13 | CR ---
Chest: Portable view of the chest was obtained. Comparison: Prior chest x-ray 01/05/20. Heart is mildly enlarged. Tortuous thoracic aorta is seen. Slight density within the lateral left costophrenic angle is seen which appears to be chronic. No acute parenchymal change is seen. Bony structures are grossly intact. Impression: 1. Slight cardiomegaly. 2. Chronic density within the lateral left costophrenic angle. 3. Nothing acute is otherwise seen. Diagnostic code #2 I agree with preliminary report from [facility], finalized on 11/09/20, 9:40 PM COORDINATOR OF ONLINE PROGRAMS
== END 2020-11-09 21:05 | disposition home or self-care (01) ==
LOC: JD.ED 19:30
DX: R07.89 Other chest pain (principal); I10 Essential (primary) hypertension; E66.9 Obesity, unspecified; R61 Generalized hyperhidrosis; Z90.49 Acquired absence of other specified parts of digestive tract; Z68.34 Body mass index [BMI] 34.0-34.9, adult; Z88.8 Allergy status to other drugs, medicaments and biological substances; Z79.82 Long term (current) use of aspirin; Z79.01 Long term (current) use of anticoagulants; Z79.899 Other long term (current) drug therapy
CPT/HCPCS: 36415; 71045; 71045-26; 80053; 82553; 83735; 83880; 84484; 85025; 85610; 85730; 93005; 93010; 99283; 99285-25

== ENCOUNTER 2021-01-26 06:03 | Day surgery (SDC) | payer MEDICARE, OTHER ==
[~2021-01-26 06:03] MED LIST changes: +Acetaminophen 325 MG Tab PO ONE; -Lactated Ringers 1,000 ML IV SCH; +Lidocaine 1%/Sod Bicarbonate in NS 8.4% 1 ML Syringe IDERM PRN; -Lidocaine 1%/Sod Bicarbonate in NS 8.4% 1 ML Syringe PRN; +Pregabalin 25 MG Cap PO SCH; +oxyCODONE ER 10 MG TAB.ER PO ONE
[2021-01-26] MEDS: Lactated Ringers 1,000 ML IV SCH ×2 (06:15→09:52)
--- NOTE | 2021-01-26 06:35 | PCM.PREANE ---
Preanesthetic Assessment - Procedure Proposed Procedure: Right total knee arthroplasty - Anesthesia/Transfusion/Family Hx Anesthesia History: Prior Anesthesia Without Reaction Family History of Anesthesia Reaction: No Transfusion History: No Prior Transfusion(s) Intubation History: Unknown - Review of Systems General: No Symptoms Pulmonary: No Symptoms Cardiovascular: No Symptoms Gastrointestinal: No Symptoms Neurological: Numbness (Feet and hands) Other: Reports: None - Physical Assessment NPO Status Date: 01/25/21 NPO Status Time: 00:00 Height: 1.75 m Weight: 99.1 kg ASA Class: 3 Mental Status: Alert & Oriented x3 Airway Class: Mallampati = 1 Dentition: Reports: Normal Dentition Thyro-Mental Finger Breadths: 3 Mouth Opening Finger Breadths: 3 ROM/Head Extension: Limited/Partial Lungs: Clear to Auscultation, Normal Respiratory Effort Cardiovascular: Regular Rate, Regular Rhythm - Lab Values: Laboratory Last Values MRSA (PCR) Negative 01/13/21 16:08 - Allergies Allergies/Adverse Reactions: Allergies Allergy/AdvReac Type Severity Reaction Status Date / Time propafenone Allergy Cannot Verified 01/23/21 09:19 Remember amiodarone AdvReac dermatomysi Verified 01/23/21 09:19 tis rosuvastatin AdvReac dermatomysi Verified 01/23/21 09:19 tis - Anesthesia Plan Pre-Op Medication Ordered: Beta Elliot Beta Elliot: Carvedilol Med Last Dose Date: 01/26/21 Med Last Dose Time: 05:00 - Acknowledgements Anesthesia Type Planned: Spinal Pt an Appropriate Candidate for the Planned Anesthesia: Yes Alternatives and Risks of Anesthesia Discussed w Pt/Guardian: Yes Pt/Guardian Understands and Agrees with Anesthesia Plan: Yes PreAnesthesia Questionnaire HEENT History: Reports: Impaired Vision Other HEENT History: WEARS GLASSES, HX OF RETINITIS PIGMENTOSA Cardiovascular History: Reports: Hypertension, Other (See Below) Other Cardiovascular History: LEAKING MITRAL VALVE, enlarged aorta, ventricular tachycardia, loop recorder. 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 Neurological History: Reports: Other (See Below) Other Neuro History: HX OF MUSCLE WEAKNESS RELATED TO DERMATOMYOSITIS Psychiatric History: Reports: None, Anxiety Endocrine/Metabolic History: Reports: Obesity/BMI 30+ Hematologic History: Reports: None Other Hematologic History: hypokalemia Immunologic History: Reports: Other (See Below) Other Immunologic History: DERMATOMYOSITIS Oncologic (Cancer) History: Reports: None Other Dermatologic History: dermatamytosis, shingles - Infectious Disease History Infectious Disease History: Reports: Shingles - Past Surgical History Head Surgeries/Procedures: Reports: None HEENT Surgical History: Reports: Cataract Surgery Other HEENT Surgeries/Procedures: HX OF BILATERAL CATARACT SURGERY AND BLEPHAROPLASTY PROCEDURE Other Cardiovascular Surgeries/Procedures: cardioversion, ablation, heart cath GI Surgical History: Reports: Appendectomy, Colonoscopy, Hernia, Inguinal, Hernia Repair/Other Other GI Surgeries/Procedures: LEFT INGUINAL HERNIA REPAIR OCTOBER 2014 Endocrine Surgical History: Reports: None Musculoskeletal Surgical History: Reports: Other (See Below) Other Musculoskeletal Surgeries/Procedures:: HX OF RIGHT WRIST FUSION, ulna surgery - SUBSTANCE USE Tobacco Use Status *Q: Never Tobacco User Tobacco Use Within Last Twelve Months: No Second Hand Smoke Exposure: No Days Per Week of Alcohol Use: 1 Number of Drinks Per Day: 0 Total Drinks Per Week: 0 Recreational Drug Use History: No - HOME MEDS Home Medications: Home Meds Hydroxychloroquine [Plaquenil] 200 mg PO BID 11/06/14 [History] carvediloL [Carvedilol] 6.25 mg PO BID 11/06/14 [History] Flecainide Acetate 100 mg PO BID 06/07/17 [History] Spironolactone [Aldactone] 25 mg PO DAILY 06/07/17 [History] Cholecalciferol (Vitamin D3) [Vitamin D3] 2,000 unit PO DAILY 02/28/18 [History] Famotidine 20 mg PO DAILY PRN 02/28/18 [History] Vitamin A 25,000 unit PO DAILY 03/01/18 [History] Apixaban [Eliquis] 5 mg PO BID 01/05/20 [History] Losartan Potassium 100 mg PO DAILY 01/06/20 [History] Cyclobenzaprine [Flexeril] 10 mg PO BID PRN #20 tab 01/24/21 [Rx] oxyCODONE 5 - 10 mg PO Q4H PRN #40 tab 01/24/21 [Rx] - CURRENT (IN HOUSE) MEDS Current Meds: Current Medications Morphine Sulfate 8 mg/Epinephrine HCl 0.3 mg/Cefuroxime Sodium 750 mg/Ketorolac Tromethamine 30 mg/Sodium Chloride 7.9 ml 0 mg .XX ASDIRECTED PRN PRN Reason: Pain Stop: 01/26/21 23:00 Lactated Ringer's (Ringers, Lactated) 1,000 mls @ 125 mls/hr IV ASDIRECTED MARCIA Stop: 01/26/21 23:00 Last Admin: 01/26/21 06:15 Dose: 125 mls/hr Documented by: Lidocaine/Sodium Bicarbonate (Buffered Lidocaine 1% In Ns 8.4%) 0.25 ml IDERM ONETIME PRN PRN Reason: Prior to IV Start Stop: 01/26/21 18:00 Last Admin: 01/26/21 06:15 Dose: 0.25 ml Documented by: Pregabalin (Lyrica) 50 mg PO DAILY [facility] Last Admin: 01/26/21 06:19 Dose: 50 mg Documented by: Sodium Chloride (Saline Flush) 10 ml FLUSH ASDIRECTED PRN PRN Reason: Keep Vein Open Stop: 01/26/21 18:00 Discontinued Medications Acetaminophen (Tylenol) 975 mg PO ONETIME ONE Stop: 01/26/21 06:01 Last Admin: 01/26/21 06:19 Dose: 975 mg Documented by: Oxycodone HCl (Oxycontin) 10 mg PO ONETIME ONE Stop: 01/26/21 06:01 Last Admin: 01/26/21 06:19 Dose: 10 mg Documented by: Tranexamic Acid (Cyklokapron) Confirm Administered Dose 1,000 mg .ROUTE .STK-MED ONE Stop: 01/26/21 06:20 Vancomycin HCl (Vancomycin) Confirm Administered Dose 1 gm .ROUTE .STK-MED ONE Stop: 01/26/21 06:20
[2021-01-26] MEDS ORDERED: Propofol 200 MG/20 ML SDV ONE ×3 (06:45→08:15)
[2021-01-26] MEDS ORDERED: Ondansetron 4 MG/2 ML SDV ONE (06:45)
[2021-01-26] MEDS ORDERED: Midazolam 1 MG/ML 2 ML SDV ONE (06:46)
[2021-01-26] MEDS ORDERED: Lidocaine 1% 4 ML ONE (06:46)
[2021-01-26] MEDS ORDERED: Ketorolac 30 MG/ML SDV ONE (06:46)
[2021-01-26] MEDS ORDERED: fentaNYL 100 MCG/2 ML SDV ONE (06:46)
[2021-01-26] MEDS ORDERED: ceFAZolin 1 GM Vial ONE (06:52)
[2021-01-26] MEDS ORDERED: Lactated Ringers 1,000 ML ONE (07:20)
[2021-01-26] MEDS ORDERED: ePHEDrine 50 MG/ML SDV ONE (07:34)
[2021-01-26] MEDS: Vancomycin 1 GM SDV ONE ×2 (07:52→08:32)
[2021-01-26] MEDS: Morphine 8 MG, EPINEPHrine 0.3 MG, Cefuroxime 750 MG, Ketorolac 30 MG, Sodium Chloride ... PRN ×10 (07:52→08:23)
[2021-01-26] MEDS: Bupivacaine 0.25% 10 ML SDV ONE ×2 (07:53→08:49)
[2021-01-26] MEDS: Triamcinolone Acetonide 40 MG/ML 1 ML SDV ONE ×2 (07:53→08:49)
[2021-01-26] MEDS ORDERED: Ropivacaine 0.5% 5 MG/ML 30 ML SDV ONE (08:26)
[2021-01-26] MEDS ORDERED: EPINEPHrine 1 MG/ML SDV ONE (08:26)
--- NOTE | 2021-01-26 09:01 | PCM.POSTAN ---
POST ANESTHESIA ASSESSMENT - MENTAL STATUS Mental Status: Alert, Oriented - VITAL SIGNS Vital Signs: Last Vital Signs Temp 36.4 C 01/26/21 06:10 Pulse 59 L 01/26/21 06:10 Resp 20 01/26/21 06:10 BP 144/76 H 01/26/21 06:10 Pulse Ox 95 01/26/21 06:10 - RESPIRATORY Respiratory Status: Respiratory Rate WNL, Airway Patent, O2 Saturation Stable, Supplemental Oxygen - CARDIOVASCULAR CV Status: Pulse Rate WNL, Blood Pressure Stable - GASTROINTESTINAL GI Status: No Symptoms - PAIN Pain Score: 0 - POST OP HYDRATION Hydration Status: Adequate & Stable - OBSERVATIONS Free Text/Narrative:: no anesthesia complications noted
--- NOTE | 2021-01-26 09:37 | PCM.SN.2 ---
- Free Text/Narrative Note: Right selective femoral nerve block at the adductor canal for post-procedure pain control under US guidance requested by Dr. Flood. Time Out: 909 Start: 909 End: 916 Chart reviewed. Consent signed. Questions answered. Appropriate monitors applied. Time out performed. Right mid-shaft femur identified with ultrasound, scanning medially of femur, the femoral artery in the adductor canal visualized, and the femoral nerve located laterally to the artery. The skin was prepped lateral to the ultrasound probe with chlorahexadine times two. The 21ga 4 insulated block needle was inserted under direct ultrasound guidance into the adductor canal. 25mL of 0.5% ropivacaine with 1:200,000 epinephrine was injected circumferentially around the nerve with intermittent negative aspiration noted. Patient tolerated the procedure well. Sterile technique noted along with sterile gloves, mask, and sterile probe cover. See picture on progress note and vital signs on nurses notes. Block completed in PACU. Edward Diehl CRNA
[2021-01-26] MEDS ORDERED: oxyCODONE 5 MG Tab PO PRN (10:09)
[2021-01-26] MEDS ORDERED: Cyclobenzaprine 10 MG Tab PO ONE (10:10)
--- NOTE | 2021-01-26 10:31 | CR ---
Right knee: AP and crosstable lateral views of the right knee were obtained. Comparison: Prior CT right knee study of 01/13/21. Knee prosthesis is noted. Components are aligned. Soft tissue air is noted from the surgical procedure. No additional abnormality is appreciated. Impression: 1. Satisfactory postop radiographic appearance of recently placed right knee prosthesis. Diagnostic code #2
--- NOTE | 2021-01-26 12:27 | PCM48HPAN ---
Post Anesthesia Note - EVALUATION WITHIN 48HRS OF ANESTHETIC Vital Signs in Normal Range: Yes Patient Participated in Evaluation: No (Per TESS Flores) Respiratory Function Stable: Yes Airway Patent: Yes Cardiovascular Function Stable: Yes (Stable as before surgery) Hydration Status Stable: Yes Pain Control Satisfactory: Yes Nausea and Vomiting Control Satisfactory: Yes Mental Status Recovered: Yes Vital Signs: Last Vital Signs Temp 36.5 C 01/26/21 11:10 Pulse 67 01/26/21 11:10 Resp 18 01/26/21 11:10 BP 144/51 H 01/26/21 11:10 Pulse Ox 96 01/26/21 11:10 - COMMENTS/OBSERVATIONS Free Text/Narrative:: no anesthesia complications noted
--- NOTE | 2021-01-26 12:36 | PCM48HPAN ---
Post Anesthesia Note - EVALUATION WITHIN 48HRS OF ANESTHETIC Vital Signs in Normal Range: Yes Patient Participated in Evaluation: Yes Respiratory Function Stable: Yes Airway Patent: Yes Cardiovascular Function Stable: Yes Hydration Status Stable: Yes Pain Control Satisfactory: Yes Nausea and Vomiting Control Satisfactory: Yes Mental Status Recovered: Yes Vital Signs: Last Vital Signs Temp 97.6 F 01/26/21 12:05 Pulse 54 L 01/26/21 12:05 Resp 20 01/26/21 12:05 BP 165/79 H 01/26/21 12:05 Pulse Ox 97 01/26/21 12:05
[2021-01-26 13:27] VITALS: BP 148/69; PULSE 60
--- NOTE | 2021-01-26 16:34 | PCM.OPNOTE ---
- General Post-Op/Procedure Note Date of Surgery/Procedure: 01/26/21 Operative Procedure(s): right total knee arthroplasty with [employer] with left knee corticosteroid injection Pre Op Diagnosis: bilateral knee osteoarthrosis Post-Op Diagnosis: Same Anesthesia Technique: Local, MAC, Spinal Primary Surgeon: Garth Flood Anesthesia Provider: Edward Diehl Heliotherapist: Monica Sweet Heliotherapist: Cassi Richard EBL in mLs: 5 Complications: None Condition: Good Free Text/Narrative:: Intake & Output 01/26/21 01/26/21 01/26/21 06:59 14:59 22:59 Intake Total 1050 Balance 1050 6 femur 5 tibia 9mm 32x10
--- NOTE | 2021-02-06 08:19 | OR ---
DATE OF OPERATION: 01/26/2021 SURGEON: Garth Flood MD OPERATION PERFORMED: Right total knee arthroplasty with Sergio robotics with left knee corticosteroid injection. PREOPERATIVE DIAGNOSIS: Bilateral knee osteoarthrosis. POSTOPERATIVE DIAGNOSIS: Bilateral knee osteoarthrosis. ANESTHESIA: Local MAC with spinal. ANESTHESIA PROVIDER: Edward Diehl CRNA ASSISTANTS: Monica Sweet PA-C, and Cassi Richard LPN. ESTIMATED BLOOD LOSS: 5 mL. COMPLICATIONS: None. CONDITION: Stable. IMPLANTS: 1. Ramonita size 6 cemented PS femur. 2. Ramonita size 5 [place] tibial baseplate. 3. [place] size 5, 9 mm PS X3 polyethylene. 4. Ramonita size 32 x 10 mm cemented asymmetric patella. DESCRIPTION OF PROCEDURE: The patient was identified in the preoperative holding area. Proper site was marked and identified by surgeon. The patient was taken back to the operating theater where after adequate anesthesia, the patient's right lower extremity had a nonsterile tourniquet applied. He was then sterilely prepped and draped in the usual sterile fashion. OR time-out was performed. The patient received 2 g of IV Ancef. The leg cordova boot was then applied. The right lower extremity was exsanguinated. Tourniquet was insufflated to 250 mmHg. Standard anterior incision was made. Medial parapatellar arthrotomy was created. Deep fibers of the MCL were raised and anterior fat pad was resected. Attention was turned to the patella. Patella measured at 24 and resected to 14 for 32 x 10 mm patella. Drill holes were then drilled and found to be adequate. At this time, intra- incisionally on the femur, two 4-0 pins were placed with a Ramonita Sergio robotic array, which was then applied. Femoral tibial checkpoints were applied, and then 2 more pins were placed in the tibia for the [place] Sergio robotic array. At this time, hip center of rotation was obtained. Medial and lateral malleoli were marked. 40 points were then obtained off the femur and the tibia for the [place] Sergio robotic plan. The patient's knee was then brought into full extension. Varus and valgus stresses were applied, and then this was done at 90 degrees of flexion. The [place] Sergio robotic plan that was specific to this patient was then undertaken. The patient was noted to have 19 mm gaps in extension and 19 mm medial and 20 mm lateral flexion gaps. At this time, the C[employer]Casa robotic arm was brought in. The straight saw blade was used for the tibial cut, the anterior femoral cut as well as the posterior femoral cut and the anterior chamfer cuts. Saw blades were then switched, and the posterior chamber cut and distal femoral cut were completed. At this time, all resections were found to be adequate. Osteophytes were removed. The medial and lateral meniscus were resected as well as posterior osteophytes. Trial implants were then placed with a size 5 tibia, size 6 femur, and a 9 mm trial spacer. At this time, the CmyCasa robotic array showed no instability, varus and valgus stresses with full extension and full flexion with no signs of liftoff. Cement was mixed on the back table. All cut surfaces irrigated with pulse lavage irrigation with Ancef. After the head had been stamped and drilled in proper rotation, box cut was also completed at this time. Once the cement was ready, the size 5 tibia was cemented into place, size 6 femur was cemented into place, and 9 mm PS X3 polyethylene was impacted into place. The patient's knee was brought into full extension. Excess cement was removed. A 32 x 10 mm asymmetric patella was cemented into place. 400 mL of Irrisept irrigation were irrigated through the knee along with 1 L of pulse lavage irrigation with Ancef. Periarticular injection was completed. Topical tranexamic acid and vancomycin powder were applied. A #2 barbed suture was used for closure of the medial parapatellar arthrotomy. 2-0 Vicryl and Stratafix were used for subcutaneous closure and Prineo was used for skin closure. The patient had a sterile soft dressing applied and was sent to the PACU in stable condition. After this 2 ml 40mg Kenalog and 4ml 0.25% marcaine were injected in the left knee under sterile technique. MMODAL /[id number] CHANDU
== END 2021-01-26 13:10 | disposition home or self-care (01) ==
LOC: JD.SDS 06:03
PROVIDERS: ATTEND Orthopaedic Surgery
DX: M17.0 Bilateral primary osteoarthritis of knee (principal); K21.9 Gastro-esophageal reflux disease without esophagitis; I10 Essential (primary) hypertension; G47.00 Insomnia, unspecified; E66.9 Obesity, unspecified; Z88.8 Allergy status to other drugs, medicaments and biological substances; Z88.1 Allergy status to other antibiotic agents; Z79.899 Other long term (current) drug therapy; Z98.890 Other specified postprocedural states; Z68.32 Body mass index [BMI] 32.0-32.9, adult; G89.18 Other acute postprocedural pain
CPT/HCPCS: 20610; 27447; 73560; 97110; 97116; 97161; 97165; A9270; C1713; C1776; J0171; J0690; J0697; J1885; J2250; J2270; J2370; J2405; J2704; J2795; J3010; J3301; J3370; J3490; J7120; 01402; 64450; 87641

== ENCOUNTER 2021-05-25 06:22 | Day surgery (SDC) | payer MEDICARE, OTHER ==
--- NOTE | 2021-05-24 19:18 | PCM.PREANE ---
Preanesthetic Assessment - Procedure Proposed Procedure: Left Total Knee Arthroplasty - Anesthesia/Transfusion/Family Hx Anesthesia History: Prior Anesthesia Without Reaction Family History of Anesthesia Reaction: No Transfusion History: No Prior Transfusion(s) Intubation History: Unknown - Review of Systems General: No Symptoms Pulmonary: No Symptoms Cardiovascular: No Symptoms Gastrointestinal: No Symptoms Neurological: No Symptoms Other: Reports: Easy Bleeding, Easy Bruising - Physical Assessment NPO Status Date: 05/24/21 NPO Status Time: 21:30 Vital Signs: 141/72 58 HR 97.4 16 97% Height: 1.75 m Weight: 95.9 kg ASA Class: 3 Mental Status: Alert & Oriented x3 Airway Class: Mallampati = 2 Dentition: Reports: Normal Dentition Thyro-Mental Finger Breadths: 3 Mouth Opening Finger Breadths: 3 ROM/Head Extension: Full Lungs: Clear to Auscultation, Normal Respiratory Effort Cardiovascular: Regular Rate, Regular Rhythm - Lab Values: Labs reviewed and to proceed - Imaging/EKG Impressions: EK01/02/2021 showed NSR with 1st degree block ECHO: 01/02/2021 showed EF 55-60% with moderate AV regurgitation and a stable/unchanged aortic aneurysm at 4.7 cm Cleared per Cardiology per note by Otilia JAIN-C - Allergies Allergies/Adverse Reactions: Allergies Allergy/AdvReac Type Severity Reaction Status Date / Time propafenone Allergy Cannot Verified 05/22/21 10:13 Remember amiodarone AdvReac dermatomysi Verified 05/22/21 10:13 tis rosuvastatin AdvReac dermatomysi Verified 05/22/21 10:13 tis - Blood Blood Available: No Product(s) Available: None - Acknowledgements Anesthesia Type Planned: Spinal Pt an Appropriate Candidate for the Planned Anesthesia: Yes Alternatives and Risks of Anesthesia Discussed w Pt/Guardian: Yes Pt/Guardian Understands and Agrees with Anesthesia Plan: Yes PreAnesthesia Questionnaire HEENT History: Reports: Impaired Vision Other HEENT History: WEARS GLASSES, HX OF RETINITIS PIGMENTOSA Cardiovascular History: Reports: Hypertension, Other (See Below) Other Cardiovascular History: Aortic regurgitation, aortic aneurysm, ventricular tachycardia, dilated cardiomyopathy, left atrial dilation, loop recorder. DERMATOMYOSITIS. Respiratory History: Reports: SOB Other Respiratory History: PT REPORTS SOB RELATED TO DERMATOMYOSITIS Gastrointestinal History: Reports: Other (See Below) Other Gastrointestinal History: CURRENT RIGHT INGUINAL HERNIA Genitourinary History: Reports: Other (See Below) Other Genitourinary History: erectile dysfunction CERTIFIED RETINAL ANGIOGRAPHER History: Reports: None Musculoskeletal History: Reports: Other (See Below) Other Musculoskeletal History: 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 Neurological History: Reports: Other (See Below) Other Neuro History: HX OF MUSCLE WEAKNESS RELATED TO DERMATOMYOSITIS Psychiatric History: Reports: None, Anxiety Endocrine/Metabolic History: Reports: Obesity/BMI 30+ Hematologic History: Reports: None Other Hematologic History: history of hypokalemia (currently within limits) Immunologic History: Reports: Other (See Below) Other Immunologic History: DERMATOMYOSITIS Oncologic (Cancer) History: Reports: None Other Dermatologic History: dermatamytosis, shingles - Infectious Disease History Infectious Disease History: Reports: Shingles - Past Surgical History Head Surgeries/Procedures: Reports: None HEENT Surgical History: Reports: Cataract Surgery Other HEENT Surgeries/Procedures: HX OF BILATERAL CATARACT SURGERY AND BLEPHAROPLASTY PROCEDURE Other Cardiovascular Surgeries/Procedures: cardioversion, ablation, heart cath GI Surgical History: Reports: Appendectomy, Colonoscopy, Hernia, Inguinal, Hernia Repair/Other Other GI Surgeries/Procedures: LEFT INGUINAL HERNIA REPAIR OCTOBER 2014 Endocrine Surgical History: Reports: None Musculoskeletal Surgical History: Reports: Knee Replacement, Other (See Below) Other Musculoskeletal Surgeries/Procedures:: HX OF RIGHT WRIST FUSION, ulna surgery - Past Imaging History Past Imaging History: Reports: Cardiac Echo (See note under EKG) - SUBSTANCE USE Tobacco Use Status *Q: Never Tobacco User Second Hand Smoke Exposure: No Days Per Week of Alcohol Use: 0 Recreational Drug Use History: No - HOME MEDS Home Medications: Home Meds Hydroxychloroquine [Plaquenil] 200 mg PO BID 11/06/14 [History] Flecainide Acetate 100 mg PO BID 06/07/17 [History] Spironolactone [Aldactone] 25 mg PO DAILY 06/07/17 [History] Cholecalciferol (Vitamin D3) [Vitamin D3] 2,000 unit PO DAILY 02/28/18 [History] Vitamin A 25,000 unit PO DAILY 03/01/18 [History] Apixaban [Eliquis] 5 mg PO BID 01/05/20 [History] Losartan Potassium 100 mg PO DAILY 01/06/20 [History] Cetirizine HCl [Zyrtec] 10 mg PO DAILY 01/26/21 [History] Collagen, Hydrolysate (Bovine) [Collagen Hydrolysate] 1 scoop PO DAILY 01/26/21 [History] Naproxen 250 mg PO ASDIRECTED 01/26/21 [History] Pantoprazole Sodium [Protonix] 40 mg PO DAILY 01/26/21 [History] Propranolol [Inderal] 40 mg PO ASDIRECTED PRN 01/26/21 [History] mycophenolate mofetiL [Cellcept] 500 mg PO BID 01/26/21 [History] - CURRENT (IN HOUSE) MEDS Current Meds: Current Medications Acetaminophen (Acetaminophen 325 Mg Tab) 975 mg PO ONETIME MARCIA Stop: 05/25/21 16:00 Morphine Sulfate 8 mg/Epinephrine HCl 0.3 mg/Cefuroxime Sodium 750 mg/Ketorolac Tromethamine 30 mg/Sodium Chloride 7.9 ml 0 mg .XX ASDIRECTED PRN PRN Reason: Pain Stop: 05/25/21 14:00 Lactated Ringer's (Ringers, Lactated) 1,000 mls @ 125 mls/hr IV ASDIRECTED MARCIA Stop: 05/25/21 23:00 Lidocaine/Sodium Bicarbonate (Lidocaine 1%/Sod Bicarbonate In Ns 8.4% 1 Ml Syringe) 0.25 ml IDERM ONETIME PRN PRN Reason: Prior to IV Start Stop: 05/25/21 18:00 Oxycodone HCl (Oxycodone Er 10 Mg Tab.Er) 10 mg PO ONETIME MARCIA Stop: 05/25/21 16:00 Pregabalin (Pregabalin 25 Mg Cap) 50 mg PO ONETIME MARCIA Stop: 05/25/21 16:00 Sodium Chloride (Sodium Chloride 0.9% 10 Ml Syringe) 10 ml FLUSH ASDIRECTED PRN PRN Reason: Keep Vein Open Stop: 05/25/21 18:00
[~2021-05-25 06:22] MED LIST changes: -Acetaminophen 325 MG Tab PO ONE; +Acetaminophen 325 MG Tab PO SCH; +Albuterol 0.083% 2.5 MG/3 ML Neb Soln NEB ONE; +EPINEPHrine 1 MG/ML SDV ONE; +Lactated Ringers 1,000 ML IV SCH; +Midazolam 1 MG/ML 2 ML SDV ONE; +Propofol 200 MG/20 ML SDV ONE; +Ropivacaine 0.5% 5 MG/ML 30 ML SDV ONE; +ceFAZolin 1 GM Vial ONE; +ePHEDrine 50 MG/ML SDV ONE; +fentaNYL 100 MCG/2 ML SDV ONE; -oxyCODONE ER 10 MG TAB.ER PO ONE; +oxyCODONE ER 10 MG TAB.ER PO SCH
[2021-05-25] MEDS: Vancomycin 1 GM SDV ONE ×2 (07:56→08:37)
[2021-05-25] MEDS: Morphine 8 MG, EPINEPHrine 0.3 MG, Cefuroxime 750 MG, Ketorolac 30 MG, Sodium Chloride ... PRN ×10 (07:56→08:28)
[2021-05-25] MEDS ORDERED: Lidocaine 1% 4 ML ONE (08:00)
[2021-05-25] MEDS ORDERED: Propofol 200 MG/20 ML SDV ONE ×2 (08:02)
[2021-05-25] MEDS ORDERED: HYDROmorphone 0.5 MG/0.5 ML Syringe IVPUSH PRN (08:08)
[2021-05-25] MEDS ORDERED: fentaNYL 100 MCG/2 ML SDV IVPUSH PRN (08:08)
[2021-05-25] MEDS ORDERED: Lactated Ringers 1,000 ML ONE (08:41)
[2021-05-25] MEDS ORDERED: Ketorolac 15 MG/ML SDV ONE (08:41)
--- NOTE | 2021-05-25 09:24 | PCM.SN.2 ---
- Free Text/Narrative Note: Left selective femoral nerve block at the adductor canal for post-procedure pain control under US guidance requested by Dr. Flood. Time Out: 907 Start: 908 End: 915 Chart reviewed. Consent signed. Questions answered. Appropriate monitors applied. Time out performed. Left mid-shaft femur identified with ultrasound, scanning medially of femur, the femoral artery in the adductor canal visualized, and the femoral nerve located laterally to the artery. The skin was prepped lateral to the ultrasound probe with chlorahexadine times two. The 21ga 4 insulated block needle was inserted under direct ultrasound guidance into the adductor canal. 25 mL of 0.5% ropivacaine with 1:200,000 epinephrine was injected circumferentially around the nerve with intermittent negative aspiration noted. Patient tolerated the procedure well. Sterile technique noted along with sterile gloves, mask, and sterile probe cover. See picture on progress note and vital signs on nurses notes. Block completed in PACU. Anjelica Mclaughlin, PRECISION AGRICULTURE SPECIALIST
--- NOTE | 2021-05-25 09:25 | PCM.POSTAN ---
POST ANESTHESIA ASSESSMENT - MENTAL STATUS Mental Status: Alert, Oriented - VITAL SIGNS Vital Signs: Last Vital Signs Temp 98.1 F 05/25/21 09:18 Pulse 58 L 05/25/21 06:20 Resp 15 05/25/21 09:18 BP 124/65 05/25/21 09:18 Pulse Ox 96 05/25/21 09:18 HR 52 at 0858 - RESPIRATORY Respiratory Status: Respiratory Rate WNL, Airway Patent, O2 Saturation Stable - CARDIOVASCULAR CV Status: Pulse Rate WNL, Blood Pressure Stable Free Text/Narrative:: Patient having occasional PVCs. - GASTROINTESTINAL GI Status: No Symptoms - POST OP HYDRATION Hydration Status: Adequate & Stable
[2021-05-25] MEDS ORDERED: Cyclobenzaprine 10 MG Tab PO ONE (09:40)
[2021-05-25] MEDS ORDERED: oxyCODONE 5 MG Tab PO PRN (09:40)
--- NOTE | 2021-05-25 10:04 | CR ---
Left knee: AP and lateral views of the left knee were obtained. Comparison: Prior left knee CT study of 05/13/21. Left knee prosthesis is noted. Patellar prosthesis is also noted. Components are aligned. Underlying bony structures are intact. Soft tissue air is noted. Impression: 1. Satisfactory postop radiographic appearance of recently placed left knee prostheses. Diagnostic code #2
--- NOTE | 2021-05-25 11:40 | PCM48HPAN ---
Post Anesthesia Note - EVALUATION WITHIN 48HRS OF ANESTHETIC Vital Signs in Normal Range: Yes Patient Participated in Evaluation: Yes Respiratory Function Stable: Yes Airway Patent: Yes Cardiovascular Function Stable: Yes Hydration Status Stable: Yes Pain Control Satisfactory: Yes Nausea and Vomiting Control Satisfactory: Yes Mental Status Recovered: Yes Vital Signs: Last Vital Signs Temp 98.2 F 05/25/21 09:55 Pulse 45 L 05/25/21 11:00 Resp 13 05/25/21 11:00 BP 147/67 H 05/25/21 11:00 Pulse Ox 95 05/25/21 11:00
[2021-05-25 12:37] VITALS: BP 113/55; PULSE 57
--- NOTE | 2021-06-03 10:56 | PCM.OPNOTE ---
- General Post-Op/Procedure Note Date of Surgery/Procedure: 05/25/21 Operative Procedure(s): left total knee arthroplasty with ilene tatyana robotics Pre Op Diagnosis: left knee osteoarthrosis Post-Op Diagnosis: Same Anesthesia Technique: Local, MAC, Spinal Primary Surgeon: Garth Flood Anesthesia Provider: Anjelica Mclaughlin Boiler Tube Blower: Monica Sweet Boiler Tube Blower: Cassi Richard EBL in mLs: 5 Complications: None Condition: Good Free Text/Narrative:: 6 femur 5 tibia 9mm 32x10
--- NOTE | 2021-06-03 12:18 | OR ---
DATE OF OPERATION: 05/25/2021 SURGEON: Garth Flood MD OPERATION PERFORMED: Left total knee arthroplasty with [place] Sergio robotic. PREOPERATIVE DIAGNOSIS: Left knee osteoarthrosis. POSTOPERATIVE DIAGNOSIS: Left knee osteoarthrosis. ANESTHESIA: Local MAC with spinal. ANESTHESIA PROVIDER: Jasvir . ASSISTANTS: Monica Sweet PA-C and Cassi Richard LPN. ESTIMATED BLOOD LOSS: 5 mL. COMPLICATIONS: None. CONDITION: Stable. IMPLANTS: 1. Ramonita size 6 cemented PS femur. 2. Ramonita size 5 cemented [place] tibial baseplate. 3. [place] size 5, 9 mm [place] polyethylene insert. 4. Ramonita size 32 x 10 mm cemented asymmetric patella. DESCRIPTION OF PROCEDURE: The patient was identified in the preop holding area. Proper site was marked and identified by the surgeon. The patient was taken back to the operating theater where after adequate anesthesia, the patient's left lower extremity had a nonsterile tourniquet applied and it was sterilely prepped and draped in the usual sterile fashion. OR time-out was performed. The patient received 2 g IV Ancef . Leg cordova was then applied to the left lower extremity. At this time, the left lower extremity was exsanguinated. Tourniquet was insufflated to 250 mmHg . Standard anterior incision was made. Medial parapatellar arthrotomy was created. Deep fibers of the MCL were raised as well as anterior fat pad was resected. Attention was turned to the patella. Patella measured 24 mm; it was resected to 14 mm for a 32 x 10 mm patella. Drill holes were then drilled. Attention was then turned to the femur. Two 4.0 pins were placed intra- incisionally for the [place] Sergio robotic array and then 2 more were placed on the tibia 3 fingerbreadths below the tibial tubercle. The [place] Sergio robotic arrays were placed on both the femur and the tibia then at this time as well as checkpoints on the femur and tibia. Hip center rotation was then obtained. The medial and lateral malleoli were marked. At this time, 40 points were obtained off the femur and the tibia for the [place] Sergio robotic plan. The patient's knee was brought to full extension. Varus and valgus stresses were applied and then into 90 degrees of flexion with a curved osteotome. Varus and valgus stresses were applied. At this time, [employer] robotic plan was done to 19 mm gaps in both flexion and extension. Ramonita [place] robotic arm was then brought in. A straight saw blade was then used for the tibial cut, the anterior femoral cut, the anterior chamfer cut, and the posterior femoral cut. All bony fragments were removed. Saw blade was then switched out and the distal femoral cut as well as the posterior chamfer cut was completed. At this time, medial and lateral menisci were resected as well as any posterior osteophytes. A 5 mm trial tibia was then placed, 6 mm trial femur was placed, and a size 5, 9 mm polyethylene trial liner was placed. The patient's knee was brought to full extension and flexion. Varus and valgus stresses were applied, was found to be stable with no instability. No signs of liftoff or loosening were noted. At this time, box cut was completed on the femur. The pins were removed from the femur and the tibia as well as the arrays and the checkpoints. Cement was mixed on the back table. All cut surfaces were irrigated with pulse lavage irrigation with Ancef and then completely dried. Once the cement was ready, the [place] size 5 mm cemented [place] tibial base plate having been previously stamped and drilled, was then cemented in place on the tibia. The [place] size 6 mm cemented femur was cemented into place. The patient had a [place] size 5, 9 mm PS polyethylene insert placed. The patient's knee was brought to full extension. Excess cement was removed. A [place] size 32 x 10 mm cemented asymmetric patella was then cemented into place. 1 L of pulse lavage irrigation with Ancef was irrigated through the knee along with 400 mL of Irrisept irrigation. Periarticular injection was completed. Topical tranexamic acid and vancomycin powder were applied. A #2 barbed suture was used for closure of the medial parapatellar arthrotomy in flexion. 2-0 Vicryl and Stratafix were used for subcutaneous closure. Prineo was used for cutaneous closure. The patient had a sterile soft dressing applied. The tibial holes were closed with nylon, and this was also covered with a sterile soft dressing. The patient had an BIA wrap applied and was sent to PACU in stable condition. The patient tolerated the procedure well. MMODAL /[id number] CHANDU
== END 2021-05-25 12:06 | disposition home or self-care (01) ==
LOC: JD.SDS 06:22
PROVIDERS: ATTEND Orthopaedic Surgery
DX: M17.12 Unilateral primary osteoarthritis, left knee (principal); M25.762 Osteophyte, left knee; I10 Essential (primary) hypertension; I48.91 Unspecified atrial fibrillation; Z88.1 Allergy status to other antibiotic agents; Z88.8 Allergy status to other drugs, medicaments and biological substances; Z79.899 Other long term (current) drug therapy; E66.9 Obesity, unspecified
CPT/HCPCS: 27447; 73560; 97116; 97161; A9270; C1713; C1776; J0171; J0690; J0697; J1885; J2250; J2270; J2704; J2795; J3370; J7120; 01402; 64450; 76942; 99100; J3010